=== PATIENT | male | born 1955 | race Caucasian/White ===

== ENCOUNTER 2023-06-21 07:53 | Emergency (ER) | payer MEDICARE, BC, SELFPAY ==
[2023-06-21 08:20] LABS: Glucose - Point of Care 146 mg/dl (70-99)
--- NOTE | 2023-06-21 08:38 | ED.GENMED ---
History of Present Illness
General
Chief Complaint: Weakness
Source: patient
Exam Limitations: none
Time Seen by Provider: 06/21/23 08:12
Travel History
Have you had any contact with someone who has COVID-19?: No
Do you have any symptoms of coronavirus? Fever > 100 degrees, chills, cough, shortness of breath, sore throat, loss of taste or smell, muscle aches, or headache?: No
History of Present Illness
History of Present Illness:
See MDM
Past History
Past History
ED Past Medical History: HTN, Hypercholesterolemia and NIDDM
ED Past Surgical History: Urological
Social History
Tobacco: Non-smoker
Alcohol: Occasional
Drug: None
Personal:
Living: with family
Phy Exam
Physical Exam
Physical Exam:
See MDM
Course
Orders/Labs/Results
Orders:
Orders
06/21/23 08:25
CT Head W/o Iv Contrast Urgent
Comment:
Reason For Exam: Fall, R forehead injury
06/21/23 08:57
Electrocardiogram (*1) Urgent
Reason for Study: Fatigue / Weakness
EKG- Treatment ONCE
06/21/23 09:20
CMP [Comprehensive Metabolic Panel] Urgent
Complete Blood Count/With Diff Urgent
Abnormal Lab Results
06/21/23 06/21/23
08:19 09:20
RBC 3.70 L 10^6/uL
(4.70-6.10)
Hgb 10.2 L g/dL
(13.0-18.0)
Hct 30.8 L %
(39.0-52.0)
Abs Immat Gran (auto) 0.1 H 10^3/uL
(0-0.05)
Absolute Neuts (auto) 7.7 H 10^3/uL
(1.4-6.5)
Absolute Lymphs (auto) 0.4 L 10^3/uL
(1.2-3.4)
Immature Gran % 0.9 H %
(0-0.5)
Neutrophils % 86.4 H %
(42.2-75.2)
Lymphocytes % 4.0 L %
(20.5-51.1)
Creatinine 0.6 L mg/dL
(0.7-1.3)
Glucose 143 H mg/dl
(70-99)
POC Glucose 146 H mg/dl
(70-99)
06/21/23 09:20
06/21/23 09:20
Vital Signs
Initial and Last Documented VS:
Initial Vital Signs
Temp Pulse Resp Pulse Ox
97.7 F 63 16 99
06/21/23 07:55 06/21/23 07:55 06/21/23 07:55 06/21/23 07:55
Last Documented Vital Signs
Temp Pulse Resp Pulse Ox
97.7 F 63 16 99
06/21/23 07:55 06/21/23 07:55 06/21/23 07:55 06/21/23 07:55
Procedures
Laceration Closure
Right Anterior Lateral Eye brow:
Status of Wound: clean
Size of Wound in cm: 5
Description of Wound Edges: ragged
Preparation: cleaned with Betadine
Anesthesia: 1% Lidocaine with epi
Revision/Debridement: routine- no revision
Wound exploration: explored to base- no FB
Type of Closure: single layer closure
Skin Closure Material: 5-0 nylon
Number of sutures: 6
MDM/Problems Addressed
Differential Diagnosis Includes:
HPI and MDM Narrative:
67-year-old male presenting for evaluation of a fall. Patient was holding his cup of coffee while trying to use his walker. Patient states this was a mistake and he fell. He is unsure what he hit but he did hit the right side of his head. He
believes his tetanus is up-to-date.
Patient and indicating that he is currently doing much better since his surgery a few months back. Patient had a prostatectomy which was complicated requiring a wound VAC on his abdomen. Patient states the wound is healing well and he has
visiting nurses. He states his strength is coming back but he made a mistake trying to carry the coffee with a walker.
Patient is sitting in bed comfortably. I will obtain CT head. The laceration was repaired at bedside.
Physical exam
General: Well appearing and non-toxic
HEENT: protecting airway. 5 cm stellate laceration to right eyebrow
Neck: supple
CV: No evidence of cyanosis
Resp: No accessory muscle use
Abd: Non-distended. Mid abdominal wound VAC in place. No surrounding cellulitis
Extremities: Small abrasion to right wrist without bony tenderness.
Neuro: alert
Psych: Normal affect
Skin: Minor skin abrasions to left palm without bony tenderness
Problems Addressed including Acute and Chronic Conditions affecting care:
1. Head injury
Acuity: acute
Prognosis: stable
Details: Given age and fall, will obtain CT head
2. Eyebrow laceration
Acuity: acute
Prognosis: stable
Details: 6 Stitches placed
Updates
Blood work without significant abnormalities. We discussed mild anemia but this is expected given recent procedures. Patient feels comfortable going home. CT head negative
Differential Diagnosis (but not limited to): Intracranial hemorrhage, fracture, dehydration
Testing considered: CT cervical spine but no bony tenderness noted
Drug therapy (if applicable): OTC meds, please see d/c instruction regarding Rx drugs
Amount and/or Complexity of Data Reviewed
Clinical info obtained from: Patient
External data reviewed: N/A
Labs I independently reviewed (but not limited to): Mild anemia
Radiology: The CT scan was personally and independently reviewed. In addition, official CT report reviewed.
Pulse Ox: not hypoxic
EKG independently reviewed: sinus rhythm, left axis, no STEMI
Retail Aide: N/A
Critical Care: N/A
Risk of Complication:
Social Determinants of health: Good social support
Discussed with other providers: N/A
Escalation of Care includes Admit/Obs: After being observed in the Emergency Department, pt stable for discharge.
Occasional wrong word or 'sound a like' substitutions may have occurred due to the inherent limitations of voice recognition software. Read the chart carefully and recognize, using context, where substitutions have occurred.
*Critical Care Note
Total Time (30-74mins, 75-104mins- exclusive of procedures): Not Applicable
ED Attending Note
-
Portions of this chart may have been created with voice recognition software.� Occasional wrong word or��sound alike� substitutions may have occurred due to the inherent limitations of voice recognition software.
Discharge Plan
Departure
Patient Disposition: Home (Routine Discharge)
Date of Disposition: 06/21/23
Time of Disposition: 10:04
Patient with high blood pressure during this ER visit?: No
Discharge Problem:
Head injury, Facial laceration
Instructions: Laceration Repair With Stitches (DC)
Prescriptions:
No Action
cholecalciferol (vitamin D3) 1,000 UNITS tablet
2,000 units PO DAILY Qty: 28 0RF
Rx Instructions:
Take 2,000 units daily for 14 days
lisinopril 20 MG tablet
20 mg PO DAILY
rosuvastatin 20 MG tablet
20 mg PO QPM
fenofibrate nanocrystallized 145 MG tablet
145 mg PO DAILY
nebivolol 2.5 MG tablet
5 mg PO QPM
omeprazole 20 MG capsule,delayed release(DR/EC)
20 mg PO DAILYPRN PRN (Reason: gerd)
empagliflozin-linagliptin [Glyxambi] 1 EACH tablet
1 tab PO DAILY
famotidine 20 MG tablet
20 mg PO BID 0RF
guaifenesin [Mucus Relief ER] 600 MG tablet extended release 12hr
600 mg PO Q12 0RF
Referrals:
Killian Powell DO [Family Provider] -
Activity Restrictions/Additional Instructions:
Keep wound clean and dry, change dressing if it becomes soiled or wet. Watch for signs of infection: fever over 100.5�, increasing pain, red streaks around wound, swelling, drainage of pus, or bad smell. If any of these happen, return to ED
promptly. Return to ED or make an appointment with your doctor to have the 6 sutures removed in 7 days. All wounds may scar, however you may reduce the appearance of scarring by avoiding sun exposure to the scar and applying skin moisturizer with
spf protection to the scar once the wound is healed.
Interventions
Interventions:
*Risk Screen - Suicide Last Done: 06/21/23 07:55
*General Assessment Last Done: 06/21/23 07:55
*Neglect/Abuse Screening Last Done: 06/21/23 07:55
ED- Fall Risk Assessment Last Done: 06/21/23 08:59
*ED COVID-19 Vaccine History Last Done: 06/21/23 08:37
ED- Cardiac Assessment Last Done: 06/21/23 08:59
ED-Musculoskeletal Assessment Last Done: 06/21/23 08:59
ED- Neurological Assessment Last Done: 06/21/23 08:59
ED- Pulmonary Assessment Last Done: 06/21/23 08:59
ED-Skin Assessment Last Done: 06/21/23 08:59
[2023-06-21 09:41] LABS: % Basophils 0.8 % (0-2); % Eosinophils 2.5 % (0-6); % Immature Granulocytes 0.9 % (0-0.5); % Monocytes 5.4 % (1.7-9.3); % Neutrophils 86.4 % (42.2-75.2); Absolute Basophils 0.1 10^3/uL (0-0.2); Absolute Eosinophils 0.2 10^3/uL (0-0.7); Absolute Immature Granulocytes 0.1 10^3/uL (0-0.05); Absolute Lymphocytes 0.4 10^3/uL (1.2-3.4); Absolute Monocytes 0.5 10^3/uL (0.1-0.6); Absolute Neutrophils 7.7 10^3/uL (1.4-6.5); Hematocrit 30.8 % (39.0-52.0); Hemoglobin 10.2 g/dL (13.0-18.0); Mean Corp Hgb Conc. 33.1 g/dL (33.0-37.0); Mean Corpuscular Hgb 27.6 pg (27.0-31.0); Mean Corpuscular Volume 83.2 fL (80.0-94.0); Nucleated Red Blood Cells % 0 % (-); Red Cell Dist. Width 14.5 % (11.5-14.5); White Blood Cell Count 8.9 10^3/uL (4.8-10.8)
[2023-06-21 09:49] LABS: ALT (SGPT) 11 U/L (0-50); AST (SGOT) 23 U/L (17-59); Albumin 3.9 g/dl (3.5-5.0); Alkaline Phosphatase 83 U/L (38-126); Blood Urea Nitrogen 15 mg/dl (9-20); Calcium 9.6 mg/dl (8.4-10.2); Carbon Dioxide 26 mmol/L (22-30); Chloride 106 mmol/L (98-107); Glucose 143 mg/dl (70-99); Potassium 3.6 mmol/L (3.5-5.1); Sodium 136 mmol/L (135-145); Total Bilirubin 0.6 mg/dl (0.2-1.3); Total Protein 6.9 g/dl (6.3-8.2); eGFR > 60.00
[2023-06-21 10:28] VITALS: BP 147/84
== END 2023-06-21 11:01 | disposition home or self-care (01) ==
LOC: EMR 07:53
PROVIDERS: EMERGENCY PHYSICIAN Student in an Organized Health Care Education/Training Program; FAMILY PHYSICIAN Internal Medicine
DX: S09.90XA Unspecified injury of head, initial encounter (principal); S01.111A Laceration without foreign body of right eyelid and periocular area, initial encounter; W19.XXXA Unspecified fall, initial encounter
CPT/HCPCS: 99285; 12013; 70450; 80053; 82962; 85025; 93005

== ENCOUNTER 2023-08-18 04:25 | Inpatient (IN) | payer MEDICARE, BC, SELFPAY ==
[2023-08-17] VITALS (7 sets, daily range): BP systolic 104–132; BP diastolic 62–76; BMI 25.4
--- NOTE | 2023-08-17 21:49 | ED.GENMED ---
History of Present Illness
General
Chief Complaint: Fever
Source: patient and spouse
Exam Limitations: altered mental status
Time Seen by Provider: 08/17/23 21:45
Nursing documentation reviewed up to this point in time: agreed with
History of Present Illness
History of Present Illness:
67-year-old male diabetes hypertension past 6 months ago underwent prostate surgery at [facility] apparently had an iatrogenic small bowel injury identified about 6 days later was under the care of Dr. James Villavicencio GI surgeon, numerous
washouts IR drains has what sounds like a wound VAC now scheduled to see Dr. Villavicencio next week with plan to go to see plastic surgery for wound closure in [place], tonight had vomiting chills, noted signs of sepsis which patient has had
previously
Patient has had weight loss over the past few months
tells me she was told by his urologist that if you were needing to be transferred to the [facility] to go to the hospital [facility] as opposed to [facility]
Patient's wound VAC was changed today
Patient saw dentist had a procedure done recently had 1 dose of an antibiotic
Patient had a UTI diagnosed at [facility] a month or so ago
Past History
Past History
ED Past Medical History: HTN, Hypercholesterolemia and NIDDM
ED Past Surgical History: Bowel resection and Urological
Social History
Tobacco: Non-smoker
Alcohol: Occasional
Drug: None
Personal:
Living: with family
Employment: Retired
Review of Systems
Review of Systems
All Other Systems: Not applicable
Constitutional: Reports fever, fatigue and chills
Respiratory: Reports cough and trouble breathing
ABD/GI: Reports nausea and vomiting
: Reports no symptoms
Musculoskeletal: Reports no symptoms
Neurological: Reports dizzy and weakness
Phy Exam
Physical Exam
Physical Exam:
Physical Exam
General: Chronically ill male warm to touch tachycardic
Neck: Lips are dry
Heart: Tachycardic
Lungs: Crackles left greater than right
Abdomen: Soft wound VAC in
Neuro: alert and oriented globally weak
Skin: no rash
Psychiatric: Cooperative
Extremities: no edema.
Course
Orders/Labs/Results
Orders:
Orders
08/17/23 21:53
IV Insert/Care/Rem.- Treatment PRN
0.9% Sodium Chloride 1000 ml [Nss] 2,000 ml IV BOLUS
08/17/23 21:54
CR Chest Portable - 1 View Urgent
Comment:
Reason For Exam: fever
Reason Study Needs to be Portable: Unable to Transport
08/17/23 22:11
Basic Metabolic Panel Urgent
Complete Blood Count/With Diff Urgent
Lactic Acid Q4H
Comment: CANCEL 2nd LACTIC ACID IF 1st LACTIC ACID IS LESS THAN 2
Blood Culture Q30M
WEI Source: Blood/Venous
Specimen Description:
08/17/23 22:25
Rectal Temp- Treatment ONCE
08/17/23 22:26
CT Abd/pelvis W Iv Cont Urgent
Comment:
Reason For Exam: fever wound vac, bowel perf
08/17/23 22:45
Piperacillin/Tazo 3.375 Gram [Zosyn] 3.375 gram in 50 ml IV NOW
08/17/23 22:46
Acetaminophen 1000MG/100Ml [Ofirmev] 1,000 mg in 100 ml IV ONCE
Acetaminophen IV Indication:: ED Narcotic Naive Pt-ONCE
08/17/23 23:21
COVID-19 Antigen Urgent
Source: Nasal Swab
Blood Culture Q30M
WEI Source: Blood/Venous
Specimen Description:
Influenza A+B Rapid Molecular Urgent
WEI Source: Nasal Swab
Specimen Description:
08/17/23 23:23
CMP [Comprehensive Metabolic Panel] Urgent
08/18/23 02:00
Lactic Acid Q4H
Comment: CANCEL 2nd LACTIC ACID IF 1st LACTIC ACID IS LESS THAN 2
Abnormal Lab Results
08/17/23 08/17/23
22:11 23:23
RBC 3.84 L 10^6/uL
(4.70-6.10)
Hgb 10.9 L g/dL
(13.0-18.0)
Hct 31.7 L %
(39.0-52.0)
Absolute Neuts (auto) 8.2 H 10^3/uL
(1.4-6.5)
Absolute Lymphs (auto) 0.3 L 10^3/uL
(1.2-3.4)
Neutrophils % 92.6 H %
(42.2-75.2)
Lymphocytes % 2.8 L %
(20.5-51.1)
BUN 30 H mg/dl 29 H mg/dl
(9-20) (9-20)
Glucose 166 H mg/dl 157 H mg/dl
(70-99) (70-99)
Lactic Acid 2.8 H mmol/L
(0.7-2.0)
08/17/23 22:11
08/17/23 23:23
Vital Signs
Initial and Last Documented VS:
Initial Vital Signs
BP
132/62
08/17/23 21:44
Last Documented Vital Signs
Temp Pulse Resp BP Pulse Ox
99.0 F 101 25 124/69 94
08/17/23 22:25 08/18/23 00:00 08/18/23 00:00 08/18/23 00:00 08/18/23 00:00
MDM/Problems Addressed
Differential Diagnosis Includes:
Sepsis pneumonia UTI influenza COVID intra-abdominal process
MDM/Problems Addressed:
Fever
Chronic conditions affecting care:
Bowel perforation diabetes hypertension
*Critical Care Note
Total Time (30-74mins, 75-104mins- exclusive of procedures): 30
Update Note
Update Note:
1045 labs noted looks dry white count noted urine pending chest x-ray noted report noted will start on antibiotics volume resuscitation
12:30 AM chest x-ray report noted, CT noted CT report noted urine is pending
ED Attending Note
-
Portions of this chart may have been created with voice recognition software.� Occasional wrong word or��sound alike� substitutions may have occurred due to the inherent limitations of voice recognition software.
Discharge Plan
Departure
Patient Disposition: Admit
Date of Disposition: 08/18/23
Time of Disposition: 00:37
Admit to: Med/Surg
Presentation/result/management discussed w/ accepting MD/DO: Hospitalist
Patient with high blood pressure during this ER visit?: No
Condition: Fair
Covid-19: Negative COVID-19
Discharge Problem:
Pneumonia
Prescriptions:
No Action
lisinopril 20 MG tablet
20 mg PO DAILY
fenofibrate nanocrystallized 145 MG tablet
145 mg PO HS
metformin 500 mg tablet extended release 24 hr
500 mg PO DAILY
escitalopram oxalate 10 mg tablet
10 mg PO HS
oxycodone 10 mg tablet
5 mg PO Q8H PRN (Reason: moderate pain/wound vac changes)
Patient Comments:
08/17/2023: last filled , 90 tabs for 30 days from [facility]
cholecalciferol (vitamin D3) [Vitamin D3] 50 mcg (2,000 unit) Tablet
50 mcg PO DAILY
ibuprofen 200 mg Capsule
400 - 600 mg PO Q6H PRN (Reason: mild pain)
acetaminophen 500 mg Tablet
1,000 mg PO Q6H PRN (Reason: mild pain)
omeprazole magnesium [Prilosec OTC] 20 mg Tablet,Delayed Release (Dr/Ec)
20 mg PO DAILY PRN (Reason: acid reflux/heartburn)
Referrals:
Killian Powell DO [Family Provider] -
Interventions
Interventions:
*Risk Screen - Suicide Last Done: 08/17/23 22:20
*General Assessment Last Done: 08/17/23 22:20
*Neglect/Abuse Screening Last Done: 08/17/23 22:20
ED- Fall Risk Assessment Last Done: 08/17/23 22:20
*ED COVID-19 Vaccine History Last Done: 08/17/23 22:20
ED- Neurological Assessment Last Done: 08/17/23 22:20
ED-Skin Assessment Last Done: 08/17/23 22:20
Discharge Date and Time
Print Language: AZERI
[2023-08-17 22:17] LABS: % Basophils 0.3 % (0-2); % Immature Granulocytes 0.5 % (0-0.5); % Lymphocytes 2.8 % (20.5-51.1); % Monocytes 1.8 % (1.7-9.3); % Neutrophils 92.6 % (42.2-75.2); Absolute Eosinophils 0.2 10^3/uL (0-0.7); Absolute Lymphocytes 0.3 10^3/uL (1.2-3.4); Absolute Monocytes 0.2 10^3/uL (0.1-0.6); Absolute Neutrophils 8.2 10^3/uL (1.4-6.5); Hematocrit 31.7 % (39.0-52.0); Hemoglobin 10.9 g/dL (13.0-18.0); Mean Corp Hgb Conc. 34.4 g/dL (33.0-37.0); Mean Corpuscular Hgb 28.4 pg (27.0-31.0); Mean Corpuscular Volume 82.6 fL (80.0-94.0); Mean Platelet Volume 8.9 fL (7.4-10.4); Nucleated Red Blood Cells % 0 % (-); Platelet Count 311 10^3/uL (130-400); Red Blood Cell Count 3.84 10^6/uL (4.70-6.10); White Blood Cell Count 8.9 10^3/uL (4.8-10.8)
[2023-08-17] MEDS: NSS 2000 IV (22:19)
[2023-08-17 22:30] LABS: Lactic Acid 2.8 mmol/L (0.7-2.0)
[2023-08-17 22:35] LABS: Blood Urea Nitrogen 30 mg/dl (9-20); Calcium 9.9 mg/dl (8.4-10.2); Carbon Dioxide 23 mmol/L (22-30); Chloride 104 mmol/L (98-107); Glucose 166 mg/dl (70-99); Sodium 137 mmol/L (135-145); eGFR > 60.00
[2023-08-17] MEDS: OFIRMEV 100 IV (23:29)
[2023-08-17] MEDS: ZOSYN 50 IV (23:30)
[2023-08-17 23:44] LABS: ALT (SGPT) 11 U/L (0-50); AST (SGOT) 19 U/L (17-59); Albumin 3.5 g/dl (3.5-5.0); Alkaline Phosphatase 80 U/L (38-126); Blood Urea Nitrogen 29 mg/dl (9-20); Calcium 9.7 mg/dl (8.4-10.2); Carbon Dioxide 22 mmol/L (22-30); Chloride 107 mmol/L (98-107); Estimated Creatinine Clearance 87 ml/min; Glucose 157 mg/dl (70-99); Potassium 3.7 mmol/L (3.5-5.1); Sodium 140 mmol/L (135-145); Total Bilirubin 0.5 mg/dl (0.2-1.3); Total Protein 6.3 g/dl (6.3-8.2); eGFR > 60.00
[2023-08-17 23:47] LABS: COVID-19 Antigen Negative (Negative)
[2023-08-18] VITALS (30 sets, daily range): BP systolic 78–137; BP diastolic 54–79; PULSE 91–94; O2SAT 97; BMI 25.1
[2023-08-18] MEDS: FLUSH (NSS) 1 FLUSH IV (03:04)
--- NOTE | 2023-08-18 03:04 | DOWNTIME ---
There was a [employer] Client Copywriter Downtime on 08/17/2023 from 0100 to 08/18/2023 at 0300. Downtime documentation of patient's care, including medication administrations, has been reconciled in the electronic record per guidelines. Refer to the
patient's paper chart under the miscellaneous tab to see printed paper medication records and downtime forms.
--- NOTE | 2023-08-18 03:55 | HPS.HSE ---
Family Physician
-
Family Physician: Killian Powell
Chief Complaint
-
rigors
History of Present Illness
67 y/o M hx of DM, HTN, HLD, hx of prostate surgery c/b bowel injury, drains and now wound VAC presents to ER with rigors and chills. Also with vomiting. at bedside assists in history and reports this is very similar to prior sepsis episodes.
No other complaints prior to hospitalization. Upon arrival to Er, patient was SOB And placed on 2L NC. He was found to have small pleural effusion and pneumonia. He was given Zosyn and admitted.
Medical History
Past Medical History
Past Medical History: Reports Other (DM, HTN, HLD, hx of prostate surgery c/b bowel injury, drains and now wound VAC )
Past Surgical History: Reports Other (prostate surgery c/b bowel injury, drains and now wound VAC )
Social History
Tobacco: Non-smoker
Alcohol: Occasional
Drug: None
Personal:
Living: With Family
Employment: Retired
Family History
Family History: Not pertinent
Allergies / Home Medications
Allergies reflects when Allergies were last updated in [employer].
Home Medications with original date entered in [employer]
Allergy/Medication List:
Allergies
Allergy/AdvReac Type Severity Reaction Status Date / Time
No Known Allergies Allergy Verified 08/17/23 21:50
Home Medications
fenofibrate nanocrystallized 145 mg tablet 145 mg PO HS 12/06/20
lisinopril 20 mg tablet 20 mg PO DAILY 12/06/20
acetaminophen 500 mg tablet 1,000 mg PO Q6H PRN mild pain 08/17/23
cholecalciferol (vitamin D3) 50 mcg (2,000 unit) tablet (Vitamin D3) 50 mcg PO DAILY 08/17/23
escitalopram oxalate 10 mg tablet 10 mg PO HS 08/17/23
ibuprofen 200 mg capsule 400 - 600 mg PO Q6H PRN mild pain 08/17/23
metformin 500 mg tablet,extended release 24 hr 500 mg PO DAILY 08/17/23
omeprazole magnesium 20 mg tablet,delayed release (Prilosec OTC) 20 mg PO DAILY PRN acid reflux/heartburn 08/17/23
oxycodone 10 mg tablet 5 mg PO Q8H PRN moderate pain/wound vac changes 08/17/23
Review of Systems
-
A 12 point ROS was completed and negative except as noted: Yes
Physical Exam
Vital Signs
Vital Signs
Temp Pulse Resp BP Pulse Ox
99.0 F 94 16 79/55 100
08/17/23 22:25 08/18/23 03:00 08/18/23 03:00 08/18/23 03:00 08/18/23 02:30
Physical Exam
General: No Apparent Distress and Appears Chronically Ill
HEENT: NormoCephalic and Anicteric
Respiratory: Rhonchi (mild L base rhonchi); No Wheezes or Rales
Cardiac: S1/S2 and Regular Rhythm
Neuro: AO x 3
Hematologic/Lymphatic: No Lymphadenopathy
Psych: Calm
Laboratory Results
-
08/17/23 22:11
08/17/23 23:23
Laboratory Results
Lactic Acid 2.8 mmol/L (0.7-2.0) H 08/17/23 22:11
Total Bilirubin 0.5 mg/dl (0.2-1.3) 08/17/23 23:23
AST 19 U/L (17-59) 08/17/23 23:23
ALT 11 U/L (0-50) 08/17/23 23:23
Alkaline Phosphatase 80 U/L (38-126) 08/17/23 23:23
Data Reviewed
-
Lab Data: Labs Reviewed by me
Impression/Plan
-
Assessment:
Early severe sepsis (tachypnea, tachycardia, pneumonia, lactic acidosis)
Acute hypoxic respiratory insufficiency on 2L
L basilar airspace PNA
- IV Zosyn
- IV Vanco pending MRSA swab
- follow cultures
- wean O2 as able
type 2 DM
- continue Metformin
- SSI
- check A1c
Essential HTN
- continue GUILHERME
HLD - fibrates
hx of prostate surgery c/b bowel injury, drains and now wound VAC
- wound care evaluation
- CT negative
DVT ppx: Lovenox
Code: Full
[2023-08-18] MEDS: NSS 1000 IV ×3 (04:28→21:08)
[2023-08-18 05:25] LABS: Lactic Acid 2.3 mmol/L (0.7-2.0)
--- NOTE | 2023-08-18 06:27 | PTCARENOTE ---
Held pt's metformin due to receiving IV contrast for CT scan. DOOR PERSON aware. Pt on SS novalog.
[2023-08-18 06:39] LABS: Hematocrit 27.6 % (39.0-52.0); Hemoglobin 9.2 g/dL (13.0-18.0); Mean Corp Hgb Conc. 33.3 g/dL (33.0-37.0); Mean Corpuscular Hgb 28.7 pg (27.0-31.0); Mean Platelet Volume 9.3 fL (7.4-10.4); Platelet Count 261 10^3/uL (130-400); Red Blood Cell Count 3.21 10^6/uL (4.70-6.10); Red Cell Dist. Width 13.2 % (11.5-14.5); White Blood Cell Count 17.7 10^3/uL (4.8-10.8)
[2023-08-18] MEDS: ZOSYN 50 IV ×2 (06:44→11:25)
[2023-08-18 06:54] LABS: ALT (SGPT) < 10 U/L (0-50); AST (SGOT) 17 U/L (17-59); Albumin 2.9 g/dl (3.5-5.0); Alkaline Phosphatase 71 U/L (38-126); Blood Urea Nitrogen 29 mg/dl (9-20); Calcium 9.1 mg/dl (8.4-10.2); Carbon Dioxide 21 mmol/L (22-30); Chloride 109 mmol/L (98-107); Estimated Creatinine Clearance 77 ml/min; Glucose 140 mg/dl (70-99); Potassium 3.6 mmol/L (3.5-5.1); Sodium 139 mmol/L (135-145); Total Bilirubin 0.4 mg/dl (0.2-1.3); Total Protein 5.5 g/dl (6.3-8.2); eGFR > 60.00
[2023-08-18] MEDS: VANCOCIN 540 MG IV (07:36)
[2023-08-18 07:46] LABS: Glucose - Point of Care 138 mg/dl (70-99)
--- NOTE | 2023-08-18 08:07 | PHA.VAN.IN ---
Assessment
- Assessment
Renal Function: Appears elevated from baseline (SCR slightly elevated at 0.9 vs 0.6 and BUN 29 vs ~15)
Concomitant Antimicrobials: piperacillin/tazobactam
Plan
- Plan
Initial / Loading Dose: 2000mg - 08/17 07:36
Maintenance Regimen: dosing by level due to slight elevations in renal function
Monitoring: random 08/18 0600
Norepinephrine also being initiated
Vanc 750mg Q12H predicts AUC 433, peak 25.5, trough 12 using population PK with current estimated CrCl
Will give 750mg x1 at 1800 and hold off on scheduling given slight elevations in SCR and BUN and possible initiation of pressor support
Pharmacokinetics Vancomycin I
- -
Patient Age: 67
Patient Sex: Male
Vancomycin Day #: 1
Indication: Pulmonary/Respiratory
Requesting Provider: Dr. Orozco
Pertinent Antimicrobial Allergies:
NKDA
Height / Weight:
Height 5 ft 8 in
Actual Weight 74.9 kg
Pertinent Past Medical History: DM
- Vital Signs / Lab Results
Temp Pulse Resp BP Pulse Ox
98.1 F 83 21 85/61 97
08/18/23 07:48 08/18/23 06:00 08/18/23 05:00 08/18/23 06:00 08/18/23 06:00
Lab Results - Hematology
08/17/23 08/18/23
22:11 06:14
WBC 8.9 17.7 H
Lab Results - Chemistry
08/17/23 08/17/23 08/18/23
22:11 23:23 06:14
BUN 30 H 29 H 29 H
Creatinine 0.7 0.8 0.9
Estimated Creat Clear 87 77
Albumin Cancelled 3.5 2.9 L
08/17/23 08/18/23
22:11 04:49
Lactic Acid 2.8 H 2.3 H
Microbiology Results
08/17/23 23:21 Influenza Types A & B (FILIBERTO) - Final
Nasal Swab Negative for Influenza A & B, NAAT
Negative results must be combined with clinical observations
and patient history.
Nucleic Acid Amplification test (NAAT)performed on the
[employer] platform.
--- NOTE | 2023-08-18 08:09 | W.PN.HOSP.TC ---
Today's Communication/Plan
-
IVF
AB
ID Eval
USS chest
Assessment / Plan
Assessment / Plan
67-year-old male presented to the hospital with rigors and chills. Also had some vomiting. He was slightly hypoxic in the ER required 2 L of oxygen.
Patient had robotic prostatectomy at [facility] in February. This was complicated by small bowel injury while withdrawing the robot. Patient underwent surgery and had drains. He has had a chronic wound on the abdominal wall since
February. He has a wound VAC and had seen his urologist Dr. Villavicencio. Plan is to take patient off of wound VAC and to have a plastic surgery appointment on Wednesday.
On examination awake alert oriented
Cardiovascular system S1-S2 appreciated
Decreased breath sounds left base
Abdomen wound VAC noted
Bowel sounds present
Neuroexam is nonfocal
# Sepsis with septic shock
Possible source pneumonia-with pleural effusion
Start pressors-Levophed as needed to keep MAP over 65 mmHg.
IV fluids to be continued
Left basilar pneumonia and possible effusion
Currently on Zosyn and vancomycin
Follow cultures
Ultrasound of the left chest
Infectious disease consultation requested
Continue oxygen supplementation and wean as tolerated
Lactic acidosis-needs to be followed
# History of prostate cancer and prostate surgery at [facility] complicated with bowel injury requiring drains and now has a wound VAC
Wound Evaluation
He has a wound VAC and had seen his urologist Dr. Villavicencio. Plan is to take patient off of wound VAC and to have a plastic surgery appointment on Wednesday.
# Constipation-bowel regimen
# Anemia-check iron studies and B12
# Type 2 diabetes-hold metformin because of IV dye
Hemoglobin A1c pending
Accu-Cheks and sliding scale coverage
# Hypertension-hold GUILHERME inhibitors given hypotension
# Hyperlipidemia-continue fenofibrate
# Depression-continue Lexapro
# GERD-continue PPI
# Hyperlipidemia
# Ex-smoker
D/W RN at bed side
time spent 52 min
Anticipated Discharge: 24 - 48 hours
Subjective/Interval History
-
Date of Service: August 18, 2023
Objective Data
-
Labs:
Laboratory Results
08/17/23 08/17/23 08/18/23
22:11 23:23 06:14
WBC 8.9 17.7 H
Hgb 10.9 L 9.2 L
Hct 31.7 L 27.6 L
Plt Count 311 261
Sodium 137 140 139
Potassium 3.7 3.6
Chloride 104 107 109 H
Carbon Dioxide 23 22 21 L
BUN 30 H 29 H 29 H
Creatinine 0.7 0.8 0.9
Glucose 166 H 157 H 140 H
Calcium 9.9 9.7 9.1
Total Bilirubin Cancelled 0.5 0.4
AST Cancelled 19 17
ALT Cancelled 11 < 10
Alkaline Phosphatase Cancelled 80 71
Vital Signs:
Vital Signs
Temp Pulse Resp BP Pulse Ox
98.1 F 83 21 85/61 97
08/18/23 07:48 08/18/23 06:00 08/18/23 05:00 08/18/23 06:00 08/18/23 06:00
--- NOTE | 2023-08-18 08:56 | PTCARENOTE ---
Rec'd pt this AM, hypotension persists, Dr. Montano notified and arrived at bedside to assess. BP slightly improved. Levo ordered but not yet started due to improved MAP. IVF and ABX infusing
[2023-08-18 09:37] LABS: Lactic Acid 2.1 mmol/L (0.7-2.0)
--- NOTE | 2023-08-18 10:03 | WOUNDNOTE ---
WON RN note: Patient admitted with pneumonia.
See H&P for complete history.
PMH: NIDDM,HTN, prostatectomy, bowel resection with complications at [facility]- wound vac on abdominal wound.
Wound Location and type/assessment: Patient admitted with: Wound vac in use on abdominal surgical wound, black foam to 125mmhg continuous. Patient reports Dr. Fernandez from [facility] applied wound vac back in February, VN has been changing it 2x per week,
last changed yesterday. Plan was for him to see a plastic surgeon for closure, has an apt August 22. Patient using own [employer] home vac unit, called [facility] for hospital wound vac and supplies. Patient requested that dressing not be changed till Wednesday
when next change due. Patient aware may have to see wound today but will ask hospitalist and I&D. Patient able to turn to sides, sacrum and heels intact.
Appetite: Good.
Pressure redistribution devices in place: On Air mattress.
Plan: Confirmed with both Dr. Montano and Dr. Fulton that wound needs to be seen today to rule out source of infection and that dressing to be changed today. Nurse Monica made aware of the above and asked to premedicate for pain if needed. PT
working with patient at moment, but will change dressing within the half hour.
Will confirm orders with hospitalist and updated nurse. Updated care plan and will follow as needed.
Note to case management of equipment requested for discharge: Continue VN
Recommend follow up with Plastic surgeon as scheduled.
--- NOTE | 2023-08-18 10:30 | WOUNDNOTE ---
ABDOMEN 2ND VIEW
--- NOTE | 2023-08-18 10:35 | WOUNDNOTE ---
WON RN NOTE: Wound vac applied adaptic then black foam to 125mmhg. Wound bed clean and granular, wound culture done per Dr. Fulton. Nurse Monica will send to lab. Abdomen shaved prior to application with electric razor. Patient tolerated procedure,
home vac charging at bedside, supplies in rm. Will place back on home vac unit when discharged. Enrolled on [employer] Web site hospital vac by JD Allen. Will follow for next vac change.
[2023-08-18 10:41] LABS: Glycohemoglobin (HgbA1c) 6.2 % (4.0-5.6)
[2023-08-18 10:44] LABS: Iron < 20 ug/dl (49-181)
[2023-08-18 10:50] LABS: Total Iron Binding Capacity 266 ug/dl (261-462)
--- NOTE | 2023-08-18 11:23 | CON.ID ---
Consultation
-
Date/Time Consultation Requested: August 18, 2023 0803
Date/Time Consultation Performed: August 18, 2023 1125
Requesting Provider: Dr. Piero Montano
Performing Provider: Dr. Michela Fulton
Reason for Consultation: Sepsis
Chief Complaint / Past History
Chief Complaint
Shaking chills
History of Present Illness
67-year-old male with history of diabetes mellitus, prostate cancer status post radical prostatectomy at [facility]-February 2023 complicated by small bowel injury/intra-abdominal abscess status post repair with large abdominal wound with wound VAC
since February 2023. He presented to the ER yesterday with acute onset of rigors. No fever. Positive weakness. No cough or shortness of breath. Positive emesis x 1. No diarrhea. In the ER, patient was hypoxic, chest x-ray showed small left
pleural effusion with adjacent consolidation, lactic acid 2.8. Today's blood pressure has been low and started on pressor. Admission blood cultures are positive for GPC's in chains and pairs. Patient reports his abdominal wound has been
improving. He denies ill contacts. He did have a tooth pulled last week August 12. Tooth was pulled due to deep cavity.
Past History
Additional Past Medical History:
Diabetes mellitus
Hypertension
HLD
Prostate cancer status post prostatectomy complicated by small bowel injury (02/2023 at [facility]), now with abdominal wound VAC
Allergy History:
No Known Allergies Allergy (Verified 08/17/23 21:50)
Medications Reviewed: Yes
Current Antibiotics:
Vancomycin
Zosyn
Social History
Tobacco: Former Smoker
Alcohol: Occasional
Drug: None
Personal:
Living: With Family
Family History
Family History: Not Pertinent
Review of Systems
Review of Systems
General: Chills and Change in Appetite
HEENT: Negative Stiff Neck, Sinus Problems, Headache or Pharyngitis
Cardiovascular: Negative Chest Pain
Respiratory: Negative Dyspnea, Cough or Sputum Production
Gasteroenterology: Nausea and Vomiting
Genital / Urological: Negative Dysuria or Flank Pain
Endocrine: Weakness
Musculoskeletal: Negative Arthralgias
Skin / Hair / Nails: Negative Rash
Neurological: Negative Headache or Dizziness
All systems: All other systems were reviewed and were negative
Vital Signs
Temp Pulse Resp BP Pulse Ox
98.1 F 100 21 129/79 98
08/18/23 07:48 08/18/23 10:02 08/18/23 10:02 08/18/23 10:02 08/18/23 09:53
Physical Exam
Physical Exam
Constitutional: Comfortable
Eyes: No Conjunctival Hemorrhage and Sclera Anicteric
Oral: No Thrush
Cardiovascular: Regular Rate and S1/S2
Pulmonary: Other (Decreased breath sound left base)
Gastrointestinal: Soft, Non Tender, Non Distended and Normal Bowel Sounds
Genito-Urinary: Negative CVA Tenderness
Extremities: Negative Edema
Wound: Other (Review of wound photo: large abdominal wound with clean granulation tissue)
Neurological: AO x 3
Lab / Diagnostic Study Results
08/18/23 06:14
08/18/23 06:14
Abs Immat Gran (auto) 0.0 10^3/uL (0-0.05) 08/17/23 22:11
Absolute Neuts (auto) 8.2 10^3/uL (1.4-6.5) H 08/17/23 22:11
Absolute Lymphs (auto) 0.3 10^3/uL (1.2-3.4) L 08/17/23 22:11
Absolute Monos (auto) 0.2 10^3/uL (0.1-0.6) 08/17/23 22:11
Absolute Basos (auto) 0.0 10^3/uL (0-0.2) 08/17/23 22:11
Immature Gran % 0.5 % (0-0.5) 08/17/23 22:11
Neutrophils % 92.6 % (42.2-75.2) H 08/17/23 22:11
Lymphocytes % 2.8 % (20.5-51.1) L 08/17/23 22:11
Monocytes % 1.8 % (1.7-9.3) 08/17/23 22:11
Eosinophils % 2.0 % (0-6) 08/17/23 22:11
Basophils % 0.3 % (0-2) 08/17/23 22:11
Lactic Acid 2.1 mmol/L (0.7-2.0) H 08/18/23 09:06
Microbiology Results
Micro:
08/17/23 22:11 Blood Culture - Preliminary
Blood/Venous Positive culture in progress
Gram Stain - Final
08/17/23 23:21 Blood Culture - Preliminary
Blood/Venous Positive culture in progress
Gram Stain - Preliminary
08/18/23 06:14 MRSA Screen - Pending
Nose
08/17/23 23:21 Influenza Types A & B (FILIBERTO) - Final
Nasal Swab Negative for Influenza A & B, NAAT
Negative results must be combined with clinical observations
and patient history.
Nucleic Acid Amplification test (NAAT)performed on the
[employer] platform.
08/17/23 CT a/p: Open wound is seen within the anterior abdominal wall near the midline, with a wound VAC. No abscess is seen adjacent to the open wound. Abdominal wall fascia appears to be intact. Severe fecal retention within the rectum, which
measures 8 cm in diameter. Findings may be related to severe constipation, and/or fecal impaction.
08/17/23 CXR: Small partially loculated left pleural effusion with associated left basilar airspace disease suspicious for pneumonia.
Assessment / Plan
# Bacteremia with GPC chains/pairs
?Strep mitis group - recent tooth extraction 5/10/14
? Strep pneumoniae
-CT a/p unremarkable
- repeat blood cx's
-await identification of organism.
- Narrow Zosyn to ceftriaxone.
- Continue Vancomycin for now pending cx data.
# Possible PNA
- pt wo respiratory symptoms
# Septic shock
- New leukocytosis today
- Trend vitals, wbc
# Chronic abdominal wound - clean
- hx prostate cancer status post prostatectomy complicated by small bowel injury (02/2023 at [facility]), now with abdominal wound VAC
[2023-08-18] MEDS: TYLENOL 1000 MG PO ×2 (11:25→17:28)
[2023-08-18] MEDS: MILK OF MAGNESIA 30 ML PO (11:25)
[2023-08-18 11:38] LABS: Vitamin B12 287 pg/ml (239-931)
[2023-08-18 12:41] LABS: Glucose - Point of Care 117 mg/dl (70-99)
[2023-08-18 12:46] LABS: Lactic Acid 2.3 mmol/L (0.7-2.0)
[2023-08-18] MEDS: MIRALAX PO (13:30)
[2023-08-18] MEDS: SENOKOT PO ×2 (13:30→18:44)
--- NOTE | 2023-08-18 13:32 | PTCARENOTE ---
Pt with very large formed, soft BM today. Pt did take Milk Of Mag earlier this AM but did not want Miralax or Senna.
--- NOTE | 2023-08-18 13:50 | CM ---
Addendum entered by Shanae Arnold 08/18/23 15:20:
PT/OT recommend discharge to SNF, however Hector is not agreeable to this plan. Family is supportive to discharge to home and assist with care as needed.
Addendum entered by Shanae Arnold 08/18/23 14:28:
Initial IMM given to Hector and his son.
Resumption of Care referral sent to [facility] via [facility]. Await response.
Original Note:
I met with Hector and his son at bedside this afternoon to complete CM assessment. Hector advised that he has home care services through [facility] for PT/OT/wound care (vac). He has an appointment with his plastic surgeon on Wednesday with
the hopes they will schedule wound closure.
Plan: Return home with resumption of [facility]
[2023-08-18] MEDS: STERILE WATER FOR INJECTION 20 ML IV (14:11)
[2023-08-18] MEDS: ROCEPHIN 2000 MG IV (14:12)
--- NOTE | 2023-08-18 14:27 | PTCARENOTE ---
Pt with improved BP. lactic remains elevated, will continue to trend. OOB x1 to chair and BSC without difficulty. family at bedside. Pt reports feeling somewhat better. at breakfast and lunch with no N/V
[2023-08-18 16:41] LABS: Glucose - Point of Care 138 mg/dl (70-99)
[2023-08-18 16:56] LABS: Lactic Acid 1.9 mmol/L (0.7-2.0)
[2023-08-18] MEDS: LOVENOX 40 MG SC (17:29)
[2023-08-18] MEDS: VANCOCIN 150 IV (17:31)
[2023-08-18] MEDS: TRICOR 145 MG PO (21:08)
[2023-08-18] MEDS: LEXAPRO 10 MG PO (21:08)
[2023-08-18 21:52] LABS: Glucose - Point of Care 133 mg/dl (70-99)
[2023-08-18 22:35] LABS: Urine Albumin Negative (Neg - Trace); Urine Bilirubin Negative (Negative); Urine Character Clear (Clear); Urine Color Yellow; Urine Glucose Negative (Negative); Urine Ketone Negative (Negative); Urine Leukocyte Negative (Negative); Urine Nitrite Negative (Negative); Urine Occult Blood Negative (Negative); Urine Urobilinogen Negative (Neg - 1+)
[2023-08-19] VITALS (13 sets, daily range): BP systolic 110–164; BP diastolic 55–84; PULSE 73; O2SAT 96
[2023-08-19] MEDS: ROXICODONE 5 MG PO (01:15)
[2023-08-19] MEDS: TYLENOL 1000 MG PO ×3 (04:41→19:27)
[2023-08-19 04:46] LABS: Hematocrit 28.3 % (39.0-52.0); Hemoglobin 9.2 g/dL (13.0-18.0); Mean Corp Hgb Conc. 32.5 g/dL (33.0-37.0); Mean Corpuscular Volume 86.3 fL (80.0-94.0); Mean Platelet Volume 9.9 fL (7.4-10.4); Platelet Count 269 10^3/uL (130-400); Red Blood Cell Count 3.28 10^6/uL (4.70-6.10); Red Cell Dist. Width 13.3 % (11.5-14.5); White Blood Cell Count 9.5 10^3/uL (4.8-10.8)
--- NOTE | 2023-08-19 04:54 | PTCARENOTE ---
T max 102.9- prn tylenol given. No episodes of hypotension overnight
[2023-08-19 05:19] LABS: Vancomycin Random 13.3 ug/ml
[2023-08-19 05:20] LABS: Blood Urea Nitrogen 21 mg/dl (9-20); Calcium 9.5 mg/dl (8.4-10.2); Carbon Dioxide 22 mmol/L (22-30); Chloride 106 mmol/L (98-107); Estimated Creatinine Clearance 69 ml/min; Glucose 97 mg/dl (70-99); Potassium 3.6 mmol/L (3.5-5.1); Sodium 137 mmol/L (135-145); eGFR > 60.00
[2023-08-19 08:02] LABS: Glucose - Point of Care 127 mg/dl (70-99)
[2023-08-19] MEDS: SENOKOT PO (08:20)
[2023-08-19] MEDS: MIRALAX PO (08:20)
--- NOTE | 2023-08-19 09:22 | W.PN.ID1 ---
Date of Service
Date of Service: August 19, 2023
Today's Communication
Add clindamycin to ceftriaxone.
DC Vancomycin.
Assessment / Plan
# Group A Strep bacteremia - unclear source
# Unlikely PNA - pt wo respiratory symptoms
# Septic shock - improving
-CT a/p unremarkable
- Abd wound clean
- follow repeat blood cx's
-TTE
- Continue ceftriaxone (d2)
- Discontinue Vancomycin
- Add short course IV clindamycin.
# Additional Past Medical History:
Diabetes mellitus
Hypertension
HLD
Prostate cancer status post prostatectomy complicated by small bowel injury (02/2023 at [facility]), now with abdominal wound VAC
Chief Complaint
-: Bacteremia
Subjective / Review of Systems
Feeling better today.
Review of Systems: No Pharyngitis, No Cough and No Sputum Production
Vital Signs / Physical Exam
Vital Signs
Vital Signs
Temp Pulse Resp BP Pulse Ox
98.9 F 81 23 121/64 95
08/19/23 07:31 08/19/23 06:00 08/19/23 06:00 08/19/23 06:00 08/19/23 06:00
Physical Exam
Constitutional: Comfortable
Eyes: Sclera Anicteric
Cardiovascular: Regular Rate and S1/S2
Pulmonary: Other (Decreased BS )
Gastrointestinal: Soft, Non Tender, Non Distended and Other (wound vac in place)
Genito-Urinary: Negative CVA Tenderness
Extremities: Negative Edema
Neurological: AO x 3
Objective Data
Lab Data
Lab Results
08/19/23 03:48
08/19/23 03:48
Estimated Creat Clear 69 ml/min 08/19/23 03:48
Lactic Acid 1.9 mmol/L (0.7-2.0) 08/18/23 16:31
Total Bilirubin 0.4 mg/dl (0.2-1.3) 08/18/23 06:14
AST 17 U/L (17-59) 08/18/23 06:14
ALT < 10 U/L (0-50) 08/18/23 06:14
Alkaline Phosphatase 71 U/L (38-126) 08/18/23 06:14
Most recent labs reviewed.
Micro Results:
08/17/23 23:21 Blood Culture - Preliminary
Blood/Venous Streptococcus pyogenes
Gram Stain - Final
08/17/23 22:11 Blood Culture - Preliminary
Blood/Venous Streptococcus pyogenes
Gram Stain - Final
08/18/23 06:14 MRSA Screen - Final
Nose Staph aureus MRSA
08/19/23 03:48 Blood Culture - Pending
Blood/Venous
08/18/23 11:36 Wound Culture - Pending
Abdomen Gram Stain - Preliminary
08/18/23 12:17 Blood Culture - Pending
Blood/Venous
08/17/23 23:21 Influenza Types A & B (FILIBERTO) - Final
Nasal Swab Negative for Influenza A & B, NAAT
Negative results must be combined with clinical observations
and patient history.
Nucleic Acid Amplification test (NAAT)performed on the
[employer] platform.
08/17/23 CT a/p: Open wound is seen within the anterior abdominal wall near the midline, with a wound VAC. No abscess is seen adjacent to the open wound. Abdominal wall fascia appears to be intact. Severe fecal retention within the rectum, which
measures 8 cm in diameter. Findings may be related to severe constipation, and/or fecal impaction.
08/17/23 CXR: Small partially loculated left pleural effusion with associated left basilar airspace disease suspicious for pneumonia.
Care Review
Plan reviewed with: Physician (Dr. Montano)
--- NOTE | 2023-08-19 09:25 | W.PN.HOSP.TC ---
Today's Communication/Plan
-
IV AB
ECHO
PT EVAL
Assessment / Plan
Assessment / Plan
67-year-old male presented to the hospital with rigors and chills. Also had some vomiting. He was slightly hypoxic in the ER required 2 L of oxygen.
Patient had robotic prostatectomy at [facility] in February. This was complicated by small bowel injury while withdrawing the robot. Patient underwent surgery and had drains. He has had a chronic wound on the abdominal wall since
February. He has a wound VAC and had seen his urologist Dr. Villavicencio. Plan is to take patient off of wound VAC and to have a plastic surgery appointment on Wednesday.
On examination awake alert oriented
Cardiovascular system S1-S2 appreciated
Decreased breath sounds left base
Abdomen wound VAC noted
Bowel sounds present
Neuro Exam is nonfocal
# Sepsis with septic shock
Possible source pneumonia-with pleural effusion
Blood CX with Strep Pyogens
BP stable
Left basilar pneumonia and possible effusion
Currently Zosyn and vancomycin changed to Rocephin and Clinda
Check ECHO
Follow repeat cultures
Ultrasound of the left chest with small fluid only
Infectious disease following
Continue oxygen supplementation and wean as tolerated
Lactic acidosis-resolved.
Abd wound looks stable with granulation.
# History of prostate cancer and prostate surgery at [facility] complicated with bowel injury requiring drains and now has a wound VAC
Wound Evaluation
He has a wound VAC and had seen his urologist Dr. Villavicencio. Plan is to take patient off of wound VAC and to have a plastic surgery appointment on Wednesday.
# Constipation-Resolved
# Anemia-THALIA and low B12 replace both
# Type 2 diabetes-hold metformin till tomorrow - IV dye
Hemoglobin A1c
Accu-Cheks and sliding scale coverage
# Hypertension-Hold GUILHERME inhibitors
# Hyperlipidemia-continue fenofibrate
# Depression-continue Lexapro
# GERD-continue PPI
# Hyperlipidemia
# Ex-smoker
D/W RN
D/W ID
Spoke to and updated.
Time spent 51 min
Anticipated Discharge: > 48 hours
Subjective/Interval History
-
Date of Service: August 19, 2023
Objective Data
-
Labs:
Laboratory Results
08/19/23
03:48
WBC 9.5
Hgb 9.2 L
Hct 28.3 L
Plt Count 269
Sodium 137
Potassium 3.6
Chloride 106
Carbon Dioxide 22
BUN 21 H
Creatinine 1.0
Glucose 97
Calcium 9.5
Vital Signs:
Vital Signs
Temp Pulse Resp BP Pulse Ox
98.9 F 81 23 121/64 95
08/19/23 07:31 08/19/23 06:00 08/19/23 06:00 08/19/23 06:00 08/19/23 06:00
I&O
08/18/23 08/19/23 08/20/23
06:59 06:59 06:59
Intake Total 3250 / 3250
Output Total 400 / 400
Balance 2850 / 2850
[2023-08-19] MEDS: NSS 1000 IV (09:43)
[2023-08-19] MEDS: CLEOCIN 50 IV ×2 (09:44→17:44)
[2023-08-19] MEDS: VITAMIN B-12 1000 MCG PO (09:49)
--- NOTE | 2023-08-19 10:50 | PTCARENOTE ---
Patient AAOx3, flat, with no complaints. Wound vac intact and working properly. VSS. RA, NSR. Patient making needs known. Continuing to closely monitor.
[2023-08-19 12:04] LABS: Glucose - Point of Care 112 mg/dl (70-99)
[2023-08-19] MEDS: FERRLECIT 110 MG IV (13:25)
[2023-08-19] MEDS: ROCEPHIN 2000 MG IV (13:25)
[2023-08-19] MEDS: STERILE WATER FOR INJECTION 20 ML IV (13:25)
[2023-08-19 16:28] LABS: Glucose - Point of Care 121 mg/dl (70-99)
[2023-08-19] MEDS: LOVENOX 40 MG SC (17:43)
[2023-08-19] MEDS: SENOKOT 17.1999999999999993 MG PO (19:28)
--- NOTE | 2023-08-19 20:05 | PTCARENOTE ---
Pt received from day shift RN. Pt c/o body aches and generalized discomfort, ordered Tylenol administered for pain, temp 99.0. Abdominal wound vac in use. No leakage noted. NPWT maintained and intact. Pm meds administered. No acute changes at this
time. Please see nursing shift assessment for full head to toe. Call dumont in reach.
[2023-08-19] MEDS: LEXAPRO 10 MG PO (21:44)
[2023-08-19] MEDS: TRICOR 145 MG PO (21:44)
[2023-08-19 22:25] LABS: Glucose - Point of Care 104 mg/dl (70-99)
[2023-08-20] VITALS (11 sets, daily range): BP systolic 115–163; BP diastolic 63–81; PULSE 65–66; O2SAT 97–98
[2023-08-20] MEDS: TYLENOL 1000 MG PO ×2 (01:26→21:55)
[2023-08-20] MEDS: CLEOCIN 50 IV (01:27)
[2023-08-20 05:22] LABS: Hematocrit 28.3 % (39.0-52.0); Hemoglobin 9.1 g/dL (13.0-18.0); Mean Corp Hgb Conc. 32.2 g/dL (33.0-37.0); Mean Corpuscular Volume 87.1 fL (80.0-94.0); Mean Platelet Volume 9.4 fL (7.4-10.4); Platelet Count 206 10^3/uL (130-400); Red Blood Cell Count 3.25 10^6/uL (4.70-6.10); Red Cell Dist. Width 13.2 % (11.5-14.5); White Blood Cell Count 5.8 10^3/uL (4.8-10.8)
[2023-08-20 05:55] LABS: Blood Urea Nitrogen 16 mg/dl (9-20); Calcium 9.3 mg/dl (8.4-10.2); Carbon Dioxide 27 mmol/L (22-30); Chloride 108 mmol/L (98-107); Estimated Creatinine Clearance 77 ml/min; Glucose 97 mg/dl (70-99); Potassium 3.5 mmol/L (3.5-5.1); Sodium 140 mmol/L (135-145); eGFR > 60.00
--- NOTE | 2023-08-20 06:21 | W.PN.HOSP.TC ---
Today's Communication/Plan
-
.
Assessment / Plan
Assessment / Plan
Physical Exam
General: No Apparent Distress and Appears Chronically Ill
HEENT: Normocephalic and Anicteric
Respiratory: good air, not much Rhonchi.
Cardiac: S1/S2 and Regular Rhythm
Neuro: AO x 3, he followed commands.
Abdomen: soft , non tender, wound vac on anterior abdomen.
Psych: Calm
67-year-old male presented to the hospital with rigors and chills. Also had some vomiting. He was slightly hypoxic in the ER required 2 L of oxygen.
Patient had robotic prostatectomy at [facility] in February. This was complicated by small bowel injury while withdrawing the robot. Patient underwent surgery and had drains. He has had a chronic wound on the abdominal wall since
February 2023. He has a wound VAC and had seen his urologist Dr. Villavicencio. Plan is to take patient off of wound VAC and to have a plastic surgery appointment on Wednesday.
# Sepsis with septic shock/ Group A Strep bacteremia
He is feeling better
Denies cough
Off nasal O2
Blood CX with Strep Pyogens, repeat blood culture NGTD
c/w IV ABx Rocephin and Clindamycin
Ultrasound of the left chest with small fluid only
Lactic acidosis-resolved.
WBC normalized.
Repeat chest x ray
Appreciate ID Help
# History of prostate cancer and prostate surgery in February 2023 at [facility] complicated with bowel injury requiring drains and now has a wound VAC
Wound Evaluation
He has a wound VAC and had seen his urologist Dr. Villavicencio. Plan is to take patient off of wound VAC and to have a plastic surgery appointment on Wednesday.
# Constipation-Resolved
# Anemia-THALIA and low B12 replace both
# Type 2 diabetes-hold metformin till tomorrow - IV dye
Hemoglobin A1c at 6.2
Accu-Cheks and sliding scale coverage
# Primary Hypertension
Stable BP, off GUILHERME for now
# Hyperlipidemia-continue fenofibrate
# Depression-continue Lexapro
# GERD-continue PPI
# Hyperlipidemia
# Ex-smoker
D/W RN
Total time spent to see the patient, examine the patient on the floor, review data and lab results, discuss treatment plan with patient and nursing staff around 55 minutes
Anticipated Discharge: > 48 hours
Subjective/Interval History
-
Date of Service: August 20, 2023
No chest pain, no sob, no cough
An episode of rigor at night with temp at 99.0 , given Tylenol.
Objective Data
-
Labs:
Laboratory Results
08/20/23
05:08
WBC Pending
Hgb Pending
Hct Pending
Plt Count Pending
Sodium 140
Potassium 3.5
Chloride 108 H
Carbon Dioxide 27
BUN 16
Creatinine 0.9
Glucose 97
Calcium 9.3
Vital Signs:
Vital Signs
Temp Pulse Resp BP Pulse Ox
99.1 F 72 19 118/66 95
08/20/23 03:29 08/20/23 02:00 08/20/23 02:00 08/20/23 02:00 08/20/23 00:00
I&O
08/18/23 08/19/23 08/20/23
06:59 06:59 06:59
Intake Total 3250 / 3250
Output Total 400 / 400 1475 / 1475
Balance 2850 / 2850 -1475 / -1475
[2023-08-20 07:49] LABS: Glucose - Point of Care 90 mg/dl (70-99)
[2023-08-20] MEDS: GLUCOPHAGE XR EXTENDED RELEASE 500 MG PO (07:57)
[2023-08-20] MEDS: MIRALAX 17 GRAMS PO (07:57)
[2023-08-20] MEDS: VITAMIN B-12 1000 MCG PO (07:57)
[2023-08-20] MEDS: SENOKOT PO ×2 (08:09→20:56)
--- NOTE | 2023-08-20 08:42 | PTCARENOTE ---
Patient received from car shifter. Patient resting comfortably in bed. AAO, VSS. No events noted over night. No complaints of pain at this time. Patient with wound vac, good seal and suction working. Low to no output, patient states there is
usually more. Wound nurse to see patient today. Currently on Room Air. Call dumont in reach.
--- NOTE | 2023-08-20 10:05 | W.PN.ID1 ---
Date of Service
Date of Service: August 20, 2023
Today's Communication
- Continue ceftriaxone (d4)
- At time of discharge, transition to amoxicillin 1000 mg po q8 through 08/30/23.
Assessment / Plan
# Group A Strep bacteremia
# Unlikely PNA - pt wo respiratory symptoms
# s/p Septic shock resolved
-Source of GAS bacteremia probably from right forearm wound abrasion (pet dog scratch)
- Abd wound swab + GAS, but wound looks clean without infection.
-CT a/p unremarkable
- repeat blood cx' neg to date.
-TTE negative vegetation
- pt clinically improving - dc IV clindamycin
- Continue ceftriaxone (d4)
- At time of discharge, transition to amoxicillin 1000 mg po q8 through 08/30/23.
# Additional Past Medical History:
Diabetes mellitus
Hypertension
HLD
Prostate cancer status post prostatectomy complicated by small bowel injury,(02/2023 at [facility]), abscesses prolonged drain till 06/2023,now with abdominal wound VAC
Chief Complaint
-: Clinical Sepsis and Bacteremia
Subjective / Review of Systems
Feeling better today.
Daughter at bedside. She states family dog scratched his right forearm on Wednesday.
Patient will like to attend his grandson's sabianist this Wednesday.
Vital Signs / Physical Exam
Vital Signs
Vital Signs
Temp Pulse Resp BP Pulse Ox
98.9 F 52 18 115/63 97
08/20/23 07:05 08/20/23 06:00 08/20/23 06:00 08/20/23 06:00 08/20/23 06:00
Physical Exam
Constitutional: Comfortable
Cardiovascular: Regular Rate and S1/S2
Pulmonary: Other (decreased BS left base)
Gastrointestinal: Soft, Non Tender and Non Distended
Extremities: Negative Edema
Wound: Other (abdominal wound examined during vac change: large wound with pale pink granulation tissue without drainage nor deep tracking.)
Neurological: AO x 3
Objective Data
Lab Data
Lab Results
08/20/23 05:08
08/20/23 05:08
Estimated Creat Clear 77 ml/min 08/20/23 05:08
Lactic Acid 1.9 mmol/L (0.7-2.0) 08/18/23 16:31
Total Bilirubin 0.4 mg/dl (0.2-1.3) 08/18/23 06:14
AST 17 U/L (17-59) 08/18/23 06:14
ALT < 10 U/L (0-50) 08/18/23 06:14
Alkaline Phosphatase 71 U/L (38-126) 08/18/23 06:14
Most recent labs reviewed.
Micro Results:
08/17/23 23:21 Blood Culture - Final
Blood/Venous Streptococcus pyogenes
Gram Stain - Final
08/19/23 03:48 Blood Culture - Preliminary
Blood/Venous No Growth in 24 hours- Final report to follow
08/18/23 12:17 Blood Culture - Preliminary
Blood/Venous No Growth in 24 hours- Final report to follow
08/18/23 11:36 Wound Culture - Preliminary
Abdomen Streptococcus pyogenes
Diptheroids
Gram Stain - Preliminary
08/17/23 22:11 Blood Culture - Preliminary
Blood/Venous Streptococcus pyogenes
Gram Stain - Final
08/18/23 06:14 MRSA Screen - Final
Nose Staph aureus MRSA
08/17/23 23:21 Influenza Types A & B (FILIBERTO) - Final
Nasal Swab Negative for Influenza A & B, NAAT
Negative results must be combined with clinical observations
and patient history.
Nucleic Acid Amplification test (NAAT)performed on the
[employer] platform.
08/17/23 CT a/p: Open wound is seen within the anterior abdominal wall near the midline, with a wound VAC. No abscess is seen adjacent to the open wound. Abdominal wall fascia appears to be intact. Severe fecal retention within the rectum, which
measures 8 cm in diameter. Findings may be related to severe constipation, and/or fecal impaction.
08/17/23 CXR: Small partially loculated left pleural effusion with associated left basilar airspace disease suspicious for pneumonia.
Care Review
Plan reviewed with: Physician (Dr. Suarez)
[2023-08-20] MEDS: CLEOCIN IV (10:08)
--- NOTE | 2023-08-20 10:25 | WOUNDNOTE ---
WON RN NOTE: Wound vac changed with assist from nurse Dr. Donaldo Headley at bedside to see wound. Patient tolerated procedure. No change in wound care will follow next week if still here. Home vac unit remains plugged in to charge in has another
canister and foam kit.
[2023-08-20 11:09] LABS: Glucose - Point of Care 99 mg/dl (70-99)
--- NOTE | 2023-08-20 13:19 | CM ---
Patient with Dx Sepsis with septic shock/ Group A Strep bacteremia. Room air. Receiving IV Abx. Patient transferring from IMU to [facility] today. Seen by wound care nurse abd wall wound - wound VAC. PT; requires assist of 2, recommend skilled
rehab. OT; max assist for toileting & LE self care, recommends skilled rehab.
As per prior CM notes, patient declined to consider going to SNF for rehab, however agreed to home with resumption of [facility].
Patient accepted by [facility] to resume service.
Per wound care notes, patient has home Wound VAC.
Per MD notes plan is for discontinuation of wound VAC on Wednesday with plastic surgery appt.
Plan continue to follow patient's progress with PT/OT and offer Caregiver services as needed.
Plan home with resumption of [facility].
[2023-08-20] MEDS: ROCEPHIN 2000 MG IV (13:44)
[2023-08-20] MEDS: FERRLECIT 110 MG IV (13:44)
[2023-08-20] MEDS: STERILE WATER FOR INJECTION 20 ML IV (13:44)
--- NOTE | 2023-08-20 15:40 | PTCARENOTE ---
Report called to Daphney ALSTON, 2N. Patient sent with over via transport on a stretcher will all known belongings. Family accompanying.
--- NOTE | 2023-08-20 16:30 | PTCARENOTE ---
Received patient as transfer from IMU into room 2121. Patient AAOx3, VSS, R arm foam intact, abdomen wound vac intact with pump setting at 125 mmHg continuous. Patient x2 assist to turn and reposition in bed, oriented to room and call dumont; call
dumont and urinal placed at bedside, patient states no concerns at this time.
[2023-08-20 17:39] LABS: Glucose - Point of Care 120 mg/dl (70-99)
[2023-08-20] MEDS: LOVENOX 40 MG SC (17:59)
[2023-08-20] MEDS: TRICOR 145 MG PO (20:55)
[2023-08-20] MEDS: LEXAPRO 10 MG PO (20:55)
[2023-08-20 21:11] LABS: Glucose - Point of Care 116 mg/dl (70-99)
[2023-08-21 07:05] VITALS: BP 154/74
[2023-08-21 07:27] LABS: Glucose - Point of Care 92 mg/dl (70-99)
[2023-08-21] MEDS: MIRALAX 17 GRAMS PO (08:34)
[2023-08-21] MEDS: SENOKOT 17.1999999999999993 MG PO (08:34)
[2023-08-21] MEDS: VITAMIN B-12 1000 MCG PO (08:34)
[2023-08-21] MEDS: GLUCOPHAGE XR EXTENDED RELEASE 500 MG PO (08:34)
--- NOTE | 2023-08-21 11:05 | CM ---
CM reviewed pt with Dr Suarez- plan for dc today
Update provided to Sweta CASANOVA and clinicals faxed via [facility]
Bedside meeting with pt
Plan remains home with [facility]/VN
IMM verbally reviewed due to contact precautions-copy provided
He will call family for ride home
Discharge Disposition- home with Sweta CASANOVA [facility] via family transport
Fax- [phone]
[2023-08-21 11:30] LABS: Glucose - Point of Care 129 mg/dl (70-99)
[2023-08-21 11:35] VITALS: BP 127/75
--- NOTE | 2023-08-21 12:25 | W.DCSUMMARY ---
Discharge Summary
Discharge Data
Date of Admission: 08/18/23
Date of Discharge: 08/21/23
-
Pending Results: No
Hospital Course
67 years old male who presented to the emergency room with rigors and chills. He had vomiting. Patient had history of sepsis in the past and family was concerned about recurrence. Patient was noted to have shortness of breath and was placed on
2 L oxygen. He also had tachycardia, tachypnea and mild lactic acidosis. Initial concern was possible pneumonia. Patient was started on intravenous antibiotics. Blood cultures showed group A streptococcus bacteremia. Infectious disease doctor
evaluated the patient. Patient did not have persistent respiratory symptoms and the likelihood of pneumonia was diminished. He had a scan of the abdomen and pelvis that was unremarkable. Repeat blood culture remained negative. Chest ultrasound
showed small left pleural effusion that was insufficient for ultrasound-guided thoracentesis. Leukocytosis resolved. He did not have fever. Oxygen saturation was normal on room air. He had transthoracic echocardiogram with no vegetation, left
ventricular ejection fraction of 67%, normal right ventricular size and function, mild mitral regurgitation/mild mitral stenosis, trace tricuspid regurgitation. He started to improve clinically. He was able to tolerate diet. Patient was given
prescription for amoxicillin to finish the course at home. Patient was evaluated by physical therapy and recommended half-way facility placement. Patient and family declined and wanted home health services with resumption of wound VAC care
at home. He remained hemodynamically stable and was discharged in a stable condition.
Physical Exam
General: No Apparent Distress and Appears Chronically Ill
HEENT: Normocephalic and Anicteric
Respiratory: good air, not much Rhonchi.
Cardiac: S1/S2 and Regular Rhythm
Neuro: AO x 3, he followed commands.
Skin: No bruising. Not jaundiced.
Abdomen: soft , non tender, wound vac on anterior abdomen.
Psych: Calm.
Total discharge time spent to see the patient, examine the patient on the floor, review data and lab results, discuss discharge plan with patient, , community case manager and nursing staff around 65 minutes
Discharge Plan
-
Patient Disposition: Home with Home Care
Discharge Diagnosis/Procedures: Group A Strep bacteremia
You are followed by infectious diseases doctor. You received intravenous antibiotic. Repeat the blood culture remained clean. Continue amoxicillin through 08/30/23.
Diet: As tolerated
Activity Restrictions/Additional Instructions:
Wound Care Instructions
Abdomen: adaptic then black foam to 125mmhg Change as previously done at home 2 x wk and prn if unable to obtain a seal. Low Intensity, Continuous at 125 mmHg. Upon discharge or transfer to another facility, remove VAC foam and apply NS moistened
gauze dressing unless home VAC unit available.
Referrals:
Michela Fulton MD [Active] -
Killian Powell DO [Family Provider] - in one to two weeks
Prescriptions:
New
amoxicillin 500 mg capsule
1,000 mg PO Q8H Qty: 60 0RF
Continued
lisinopril 20 MG tablet
20 mg PO DAILY
fenofibrate nanocrystallized 145 MG tablet
145 mg PO HS
metformin 500 mg tablet extended release 24 hr
500 mg PO DAILY
escitalopram oxalate 10 mg tablet
10 mg PO HS
cholecalciferol (vitamin D3) [Vitamin D3] 50 mcg (2,000 unit) Tablet
50 mcg PO DAILY
ibuprofen 200 mg Capsule
400 - 600 mg PO Q6H PRN (Reason: mild pain)
acetaminophen 500 mg Tablet
1,000 mg PO Q6H PRN (Reason: mild pain)
omeprazole magnesium [Prilosec OTC] 20 mg Tablet,Delayed Release (Dr/Ec)
20 mg PO DAILY PRN (Reason: acid reflux/heartburn)
Discontinued
oxycodone 10 mg tablet
5 mg PO Q8H PRN (Reason: moderate pain/wound vac changes)
Patient Comments:
08/17/2023: last filled , 90 tabs for 30 days from [facility][id number]
Discharge Orders:
Discharge Patient (As Directed); Ordered 08/21/23
Ordered By: Nirmal Suarez
Discharge Date and Time
Print Language: SOU[place] KORE[place]
--- NOTE | 2023-08-21 13:12 | PTCARENOTE ---
pt Dc'd home today at bedside, switched wound vac from ours to his own without any issues.
--- NOTE | 2023-08-23 07:42 | WOUNDNOTE ---
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
== END 2023-08-21 12:45 | disposition home health service (06) | DRG 871 ==
LOC: 2 NORTH 04:25
PROVIDERS: Hospitalist; Nurse Practitioner Family; ADMITTING PHYSICIAN Internal Medicine; ATTENDING PHYSICIAN Internal Medicine; EMERGENCY PHYSICIAN Emergency Medicine; FAMILY PHYSICIAN Internal Medicine; OTHER PHYSICIAN Internal Medicine Infectious Disease
DX: A40.0 Sepsis due to streptococcus, group A (principal); J18.9 Pneumonia, unspecified organism; R65.21 Severe sepsis with septic shock; E87.20 Acidosis, unspecified; Z11.52 Encounter for screening for COVID-19; E11.9 Type 2 diabetes mellitus without complications; I10 Essential (primary) hypertension; R65.20 Severe sepsis without septic shock; Z87.891 Personal history of nicotine dependence; E78.00 Pure hypercholesterolemia, unspecified; K21.9 Gastro-esophageal reflux disease without esophagitis
CPT/HCPCS: 71045; 74177; 76604; 80048; 80053; 80202; 81003; 82607; 82728; 82962; 83036; 83540; 83550; 83605; 83735; 85025; 85027; 87040; 87070; 87077; 87147; 87186; 87205; 87502; 87811; 93005; 93306; 97116; 97163; 97167; 97530; 97535; 99291; J2916; Q9967

== ENCOUNTER → 2023-09-08 12:00 | Outpatient (REF) | payer MEDICARE, BC, SELFPAY | LOC: HWRAD 12:00 | PROVIDERS: ATTENDING PHYSICIAN Nurse Practitioner Family | DX: R05.3 Chronic cough (principal); R09.89 Other specified symptoms and signs involving the circulatory and respiratory systems | CPT/HCPCS: 71046 ==

== ENCOUNTER 2024-01-28 09:12 | Outpatient (RCR) | payer MEDICARE, BC, SELFPAY | END 2024-01-28 23:59 | disposition home or self-care (01) | LOC: RPT 09:12 | PROVIDERS: ATTENDING PHYSICIAN Urology; FAMILY PHYSICIAN Internal Medicine | DX: D07.5 Carcinoma in situ of prostate (principal); N39.46 Mixed incontinence; Z73.6 Limitation of activities due to disability; R20.0 Anesthesia of skin; R20.2 Paresthesia of skin; Z90.79 Acquired absence of other genital organ(s) | CPT/HCPCS: 97110; 97161; 97530 ==

== ENCOUNTER 2024-02-08 11:56 | Outpatient (RCR) | payer MEDICARE, BC, SELFPAY | END 2024-02-23 07:25 | disposition home or self-care (01) | LOC: RPT 11:56 | PROVIDERS: ATTENDING PHYSICIAN Urology; FAMILY PHYSICIAN Internal Medicine | DX: D07.5 Carcinoma in situ of prostate (principal); N39.46 Mixed incontinence; Z73.6 Limitation of activities due to disability; Z90.79 Acquired absence of other genital organ(s) | CPT/HCPCS: 97110; 97112 ==

== ENCOUNTER 2024-02-11 12:57 | Emergency (ER) | payer MEDICARE, BC, SELFPAY ==
[2024-02-11] VITALS (11 sets, daily range): BP systolic 113–167; BP diastolic 67–86
[2024-02-11 14:00] LABS: % Basophils 0.7 % (0-2); % Eosinophils 2.4 % (0-6); % Immature Granulocytes 0.8 % (0-0.5); % Lymphocytes 11.4 % (20.5-51.1); % Neutrophils 76.7 % (42.2-75.2); Absolute Basophils 0.1 10^3/uL (0-0.2); Absolute Eosinophils 0.2 10^3/uL (0-0.7); Absolute Immature Granulocytes 0.1 10^3/uL (0-0.05); Absolute Lymphocytes 1.1 10^3/uL (1.2-3.4); Absolute Monocytes 0.8 10^3/uL (0.1-0.6); Absolute Neutrophils 7.5 10^3/uL (1.4-6.5); Hematocrit 34.7 % (39.0-52.0); Hemoglobin 12.5 g/dL (13.0-18.0); Mean Corpuscular Hgb 29.5 pg (27.0-31.0); Mean Corpuscular Volume 81.8 fL (80.0-94.0); Mean Platelet Volume 9.7 fL (7.4-10.4); Nucleated Red Blood Cells % 0 % (-); Platelet Count 298 10^3/uL (130-400); Red Blood Cell Count 4.24 10^6/uL (4.70-6.10); Red Cell Dist. Width 12.2 % (11.5-14.5); White Blood Cell Count 9.8 10^3/uL (4.8-10.8)
[2024-02-11 14:13] LABS: ALT (SGPT) 14 U/L (0-50); AST (SGOT) 16 U/L (17-59); Albumin 4.5 g/dl (3.5-5.0); Alkaline Phosphatase 81 U/L (38-126); Blood Urea Nitrogen 32 mg/dl (9-20); Calcium 10.4 mg/dl (8.4-10.2); Carbon Dioxide 25 mmol/L (22-30); Chloride 98 mmol/L (98-107); Glucose 231 mg/dl (70-99); Lipase 63 U/L (23-300); Potassium 4.5 mmol/L (3.5-5.1); Sodium 137 mmol/L (135-145); Total Bilirubin 0.8 mg/dl (0.2-1.3); Total Protein 7.6 g/dl (6.3-8.2); eGFR > 60.00
--- NOTE | 2024-02-11 14:55 | ED.GENMED ---
History of Present Illness
<SATNHOSH Cooper - Last Filed: 02/11/24 21:19>
General
Chief Complaint: Abdominal Pain
Source: patient and family
Exam Limitations: none
Time Seen by Provider: 02/11/24 14:18
Nursing documentation reviewed up to this point in time: agreed with
History of Present Illness
History of Present Illness:
Patient is a 68-year-old male with history of hypertension hyperlipidemia prostatectomy in February 2023 with complicated small bowel perforation with resection and intra-abdominal abscess and ventral hernia.
Patient has had skin flapping at [facility] in October 2023. Patient was brought by family for 2 weeks of increasing weakness. They also feel that the skin flap seems a little more swollen than normal and patient has been complaining of some left-sided
abdominal pain. No chills. Patient had a temperature of 99 on Wednesday. He has a mild chronic cough no shortness of breath or chest pain. Denies any black or dark stools.
Past History
<SANTHOSH Cooper - Last Filed: 02/11/24 21:19>
Past History
ED Past Medical History: HTN, Hypercholesterolemia and NIDDM
ED Past Surgical History: Bowel resection and Urological
Social History
Tobacco: Non-smoker
Alcohol: Occasional
Drug: None
Personal:
Living: with family
Employment: Retired
Review of Systems
<SANTHOSH Cooper - Last Filed: 02/11/24 21:19>
Review of Systems
Allergies reviewed?: Yes
All Other Systems: ROS reviewed and negative except as documented in HPI and ROS
Constitutional: Reports fatigue; Denies chills
Respiratory: Reports no symptoms
Cardiac: Reports no symptoms
ABD/GI: Reports abdominal pain; Denies nausea or vomiting
: Reports no symptoms
Musculoskeletal: Reports no symptoms
Skin: Reports no symptoms
Neurological: Reports no symptoms
Psychiatric: Reports no symptoms
Phy Exam
<SANTHOSH Cooper - Last Filed: 02/11/24 21:19>
General Physical Exam
General Presentation: no apparent distress
General age: appears stated age
General Skin: warm and dry
General Habitus: normal
General Mental: alert
General Hydration: appears well hydrated
Cardiovascular Exam
Cardiovascular Exam: regular rate/rhythm, no murmur and normal peripheral pulses
Pulmonary Exam
Pulmonary Exam: lungs clear and no respiratory distress
Gastrointestinal Exam
Gastrointestinal Exam: other (Skin graft to anterior abdomen soft no drainage )
Neurological Exam
Neurological Exam: alert and oriented x3
Musculoskeletal Exam
Musculoskeletal Exam: full ROM
Skin Exam
Skin Exam: normal color and warm/dry
Psychiatric Exam
Psychiatric Exam: normal mood/affect
Course
<SANTHOSH Cooper - Last Filed: 02/11/24 21:19>
Orders/Labs/Results
Orders:
Orders
02/11/24 13:37
Complete Blood Count/With Diff Urgent
Comprehensive Metabolic Panel Urgent
Lipase Urgent
02/11/24 15:11
CT Abd/pel W Iv And Oral Contr Urgent
Comment:
Reason For Exam: abd pain hx of resection/ventral hernia/skin flap
Iohexol [Omnipaque] See Protocol PO NOW STA
02/11/24 15:12
0.9% Sodium Chloride 1000 ml [Nss] 1,000 ml IV BOLUS
02/11/24 16:27
UA Reflex to Culture [Urinalysis Reflex To Culture] Urgent
Date Specimen was Collected: 02/11/24
Time Specimen was Collected: 16:17
02/11/24 19:28
Piperacillin/Tazo 3.375 Gram [Zosyn] 3.375 gram in 50 ml IV NOW
02/11/24 21:10
Cephalexin Monohydrate [Keflex] 500 mg PO NOW STA
Abnormal Lab Results
02/11/24 02/11/24
13:37 16:27
RBC 4.24 L 10^6/uL
(4.70-6.10)
Hgb 12.5 L g/dL
(13.0-18.0)
Hct 34.7 L %
(39.0-52.0)
Abs Immat Gran (auto) 0.1 H 10^3/uL
(0-0.05)
Absolute Neuts (auto) 7.5 H 10^3/uL
(1.4-6.5)
Absolute Lymphs (auto) 1.1 L 10^3/uL
(1.2-3.4)
Absolute Monos (auto) 0.8 H 10^3/uL
(0.1-0.6)
Immature Gran % 0.8 H %
(0-0.5)
Neutrophils % 76.7 H %
(42.2-75.2)
Lymphocytes % 11.4 L %
(20.5-51.1)
BUN 32 H mg/dl
(9-20)
Glucose 231 H mg/dl
(70-99)
Calcium 10.4 H mg/dl
(8.4-10.2)
AST 16 L U/L
(17-59)
Urine Urobilinogen 2+ A
(Neg - 1+)
Urine Glucose 3+ A
(Negative)
02/11/24 13:37
02/11/24 13:37
Vital Signs
Initial and Last Documented VS:
Initial Vital Signs
Temp Pulse Resp BP Pulse Ox
36.7 C 80 16 113/71 97
02/11/24 13:11 02/11/24 13:11 02/11/24 13:11 02/11/24 13:11 02/11/24 13:11
Last Documented Vital Signs
Temp Pulse Resp BP Pulse Ox
36.7 C 78 18 140/79 99
02/11/24 13:11 02/11/24 19:44 02/11/24 19:44 02/11/24 18:00 02/11/24 18:00
<Baljinder Chandler MD - Last Filed: 02/11/24 21:21>
Orders/Labs/Results
Orders:
Orders
02/11/24 13:37
Complete Blood Count/With Diff Urgent
Comprehensive Metabolic Panel Urgent
Lipase Urgent
02/11/24 15:11
CT Abd/pel W Iv And Oral Contr Urgent
Comment:
Reason For Exam: abd pain hx of resection/ventral hernia/skin flap
Iohexol [Omnipaque] See Protocol PO NOW STA
02/11/24 15:12
0.9% Sodium Chloride 1000 ml [Nss] 1,000 ml IV BOLUS
02/11/24 16:27
UA Reflex to Culture [Urinalysis Reflex To Culture] Urgent
Date Specimen was Collected: 02/11/24
Time Specimen was Collected: 16:17
02/11/24 19:28
Piperacillin/Tazo 3.375 Gram [Zosyn] 3.375 gram in 50 ml IV NOW
02/11/24 21:10
Cephalexin Monohydrate [Keflex] 500 mg PO NOW STA
Abnormal Lab Results
02/11/24 02/11/24
13:37 16:27
RBC 4.24 L 10^6/uL
(4.70-6.10)
Hgb 12.5 L g/dL
(13.0-18.0)
Hct 34.7 L %
(39.0-52.0)
Abs Immat Gran (auto) 0.1 H 10^3/uL
(0-0.05)
Absolute Neuts (auto) 7.5 H 10^3/uL
(1.4-6.5)
Absolute Lymphs (auto) 1.1 L 10^3/uL
(1.2-3.4)
Absolute Monos (auto) 0.8 H 10^3/uL
(0.1-0.6)
Immature Gran % 0.8 H %
(0-0.5)
Neutrophils % 76.7 H %
(42.2-75.2)
Lymphocytes % 11.4 L %
(20.5-51.1)
BUN 32 H mg/dl
(9-20)
Glucose 231 H mg/dl
(70-99)
Calcium 10.4 H mg/dl
(8.4-10.2)
AST 16 L U/L
(17-59)
Urine Urobilinogen 2+ A
(Neg - 1+)
Urine Glucose 3+ A
(Negative)
02/11/24 13:37
02/11/24 13:37
Vital Signs
Initial and Last Documented VS:
Initial Vital Signs
Temp Pulse Resp BP Pulse Ox
36.7 C 80 16 113/71 97
02/11/24 13:11 02/11/24 13:11 02/11/24 13:11 02/11/24 13:11 02/11/24 13:11
Last Documented Vital Signs
Temp Pulse Resp BP Pulse Ox
36.7 C 78 18 140/79 99
02/11/24 13:11 02/11/24 19:44 02/11/24 19:44 02/11/24 18:00 02/11/24 18:00
<SANTHOSH Cooper - Last Filed: 02/11/24 21:19>
MDM/Problems Addressed
MDM/Problems Addressed:
60-year-old male complicated history including bowel perforation, intra-abdominal abscesses and reconstructive graft surgery of skin of abdomen October 2023 done by [facility] presents to the ER for evaluation of weakness. In addition patient does complain
of some discomfort around scar and skin graft. Skin graft appears soft. Patient is nontoxic afebrile normal white count CAT scan however does show however new soft tissue abscess along the left anterior abdominal wall deep to the rectus abdominis.
Will notify Dr. Humza Burns at [facility].
Case reviewed with . I did review patient's symptoms including feeling mildly weak and left side abdominal discomfort. I reviewed CAT scan of findings of abscess. With patient having a normal white count normal white count and no fever
he is comfortable patient being discharged from here and following up in his office Wednesday morning. He will arrange IR drainage if needed.
PT was evaluated by DR Chandler.
Pt daughter and did talk it over patient wishes to try to go home. Will give dose of Keflex here in the ER for tomorrow and will send a prescription to the pharmacy patient is to show up at Dr. Burns's office on Wednesday.
However I did review with patient family to return if any worsening of symptoms or increased pain fever chills or any further concerns.
<SANTHOSH Cooper - Last Filed: 02/11/24 21:19>
*Radiology
Radiology exam reviewed: radiology read reviewed (CAT scan shows new soft tissue abscess along the left anterior abdominal wall deep into the rectus abdominis)
*Critical Care Note
Total Time (30-74mins, 75-104mins- exclusive of procedures): Not Applicable
ED Attending Note
<SANTHOSH Cooper - Last Filed: 02/11/24 21:19>
-
Portions of this chart may have been created with voice recognition software.� Occasional wrong word or��sound alike� substitutions may have occurred due to the inherent limitations of voice recognition software.
<Baljinder Chandler MD - Last Filed: 02/11/24 21:21>
ED Attending Note
Patient seen and examined by attending physician: Yes
ED Attending Note:
I have seen and evaluated the patient with a [id number] encounter. I have spoken to the advance practicer provider and involved in the medical history, the physical exam, medical decision making.
Evaluation and management service: agree unless noted differently below.
Results interpretation: agree unless noted differently below.
Focused HPI: 68-year-old male with past medical history as documented notable for complicated abdominal surgical history who presents to the ER for evaluation of abdominal pain, fatigue. Patient reports he has been feeling fatigued x 2 weeks. He
had 2 episodes over the past 2 weeks of rather severe night sweats/chills. Over the past few days he has had increasing pain in the left abdomen. Came to the ER for evaluation. He has been following at [facility] with plastic surgery; he
had prostatectomy that was unfortunately complicated by bowel perforation and intra-abdominal abscesses and has required multiple surgeries. He also required skin grafting to cover abdominal wounds. Most recent surgery was in October. He has not had
fever. No vomiting. No diarrhea. No urinary symptoms.
Physical exam: Awake alert not in distress. Vitals normal�notably afebrile. Abdomen is soft, mildly tender lateral abdomen. He has skin grafting on ventral abdomen.
Medical Decision Makin-year-old male with history as above presents with chills and increasing left-sided abdominal pain. Vitals normal. Exam as above. Labs were sent off including a CBC which showed no clinically significant
abnormalities�notably normal white count. Chemistry was significant for hyperglycemia to 230�patient says 'this is normal for me.' He has no signs of DKA. Urinalysis no signs of infection, no ketones. CT abdomen pelvis did show the left sided
abdominal wall abscess. MCKENNA discussed case with plastic surgeon at [facility]�discussion about transfer, they recommended holding off on emergent transfer with nontoxic patient instead starting on antibiotics by mouth and having him
follow-up Wednesday morning in the office. I had a long discussion with the patient and his family including his daughter who is a nurse. Explained that definitive treatment for an abscess is drainage and the antibiotics are at best a temporizing
measure. I explained that there is risk of progression without drainage and that this needs to be monitored very closely. I offered to admit patient, transfer to [facility] for trial 2 days of antibiotics with plan for follow-up Wednesday with plastic
surgeon as an outpatient (as recommended by plastic surgeon). Patient and family feel comfortable with a trial of discharge but I did stress with him the importance of very strict return precautions including any fever, worsening pain, or any
concerning symptoms.
Discharge Plan
Departure
Prescriptions:
No Action
lisinopril 20 MG tablet
20 mg PO DAILY
fenofibrate nanocrystallized 145 MG tablet
145 mg PO HS
metformin 500 mg tablet extended release 24 hr
500 mg PO TID
escitalopram oxalate 10 mg tablet
10 mg PO HS
cholecalciferol (vitamin D3) [Vitamin D3] 50 mcg (2,000 unit) Tablet
50 mcg PO DAILY
omeprazole magnesium [Prilosec OTC] 20 mg Tablet,Delayed Release (Dr/Ec)
20 mg PO DAILYPRN PRN (Reason: acid reflux/heartburn)
gabapentin 100 mg capsule
200 mg PO HS
dapagliflozin propanediol [Farxiga] 5 mg tablet
5 mg PO DAILY
Referrals:
Killian Powell DO [Family Provider] -
Interventions
Interventions:
*Risk Screen - Suicide Last Done: 02/11/24 14:27
*General Assessment Last Done: 02/11/24 14:27
*Neglect/Abuse Screening Last Done: 02/11/24 14:27
*ED COVID-19 Vaccine History Last Done: 02/11/24 14:27
[id number] Assessment Last Done: 02/11/24 14:30
Discharge Date and Time
Print Language: MEXICAN
[2024-02-11] MEDS: NSS 1000 IV (15:39)
[2024-02-11] MEDS: OMNIPAQUE 50 ML PO (15:39)
[2024-02-11 16:43] LABS: Urine Albumin Negative (Neg - Trace); Urine Bilirubin Negative (Negative); Urine Character Clear (Clear); Urine Color Yellow; Urine Glucose 3+ (Negative); Urine Ketone Negative (Negative); Urine Leukocyte Negative (Negative); Urine Nitrite Negative (Negative); Urine Occult Blood Negative (Negative); Urine Urobilinogen 2+ (Neg - 1+)
[2024-02-11] MEDS: ZOSYN 50 IV (19:42)
[2024-02-11] MEDS: KEFLEX 500 MG PO (21:33)
== END 2024-02-11 21:41 | disposition home or self-care (01) ==
LOC: EMR 12:57
PROVIDERS: Nurse Practitioner; Student in an Organized Health Care Education/Training Program; EMERGENCY PHYSICIAN Emergency Medicine; FAMILY PHYSICIAN Internal Medicine
DX: L02.211 Cutaneous abscess of abdominal wall (principal); I10 Essential (primary) hypertension; E78.00 Pure hypercholesterolemia, unspecified
CPT/HCPCS: 99285; 96365; 96361; 74177; 80053; 81003; 83690; 85025; Q9967

== ENCOUNTER 2024-04-04 11:02 | Outpatient (RCR) | payer MEDICARE, BC, SELFPAY | END 2024-04-04 23:59 | disposition home or self-care (01) | LOC: RPT 11:02 | PROVIDERS: FAMILY PHYSICIAN Internal Medicine | DX: R32 Unspecified urinary incontinence (principal); Z73.6 Limitation of activities due to disability; R26.81 Unsteadiness on feet; M62.81 Muscle weakness (generalized); R20.2 Paresthesia of skin; R20.0 Anesthesia of skin; Z85.46 Personal history of malignant neoplasm of prostate | CPT/HCPCS: 97110; 97112; 97161; 97530 ==

== ENCOUNTER 2024-04-23 13:44 | Emergency (ER) | payer MEDICARE, BC, SELFPAY ==
[2024-04-23 13:49] VITALS: BP 157/81
[2024-04-23 14:05] VITALS: BP 175/75
--- NOTE | 2024-04-23 14:52 | ED.GENMED ---
History of Present Illness
General
Chief Complaint: Blood Pressure Problem
Source: patient
Time Seen by Provider: 04/23/24 14:41
History of Present Illness
History of Present Illness:
68-year-old male presents to the emergency room complaining of headache located primarily in the left side of his head which has been present for the past 2 days. He is also noted his blood pressure to be much higher than it normally is. He denies
any associated nausea, vomiting, diarrhea. He does feel pressure behind his eye and it is teeth on the left. No fever.
Past History
Past History
ED Past Medical History: HTN, Hypercholesterolemia and NIDDM
ED Past Surgical History: Bowel resection and Urological
Social History
Tobacco: Non-smoker
Alcohol: Occasional
Drug: None
Personal:
Living: with family
Employment: Retired
Phy Exam
Physical Exam
Physical Exam:
General: Awake, Alert, Oriented X3. No acute distress.
Vitals: unremarkable
Head: Atraumatic
Eyes: Pupils equal, EOMI
Throat: Airway intact, no exudates
Neck: Trachea midline
Lungs: Clear and equal b/l
Heart: Regular rate, no murmurs
Abd: Soft, ventral hernia, nontender, No pulsatile mass
Neuro: Nonfocal
Skin: Warm, dry, no rash
Extremities: pulses equal b/l, no edema
Course
Orders/Labs/Results
Orders:
Orders
04/23/24 13:53
EKG [Electrocardiogram (*1)] Urgent
Reason for Study: Other
Other Reason for Exam: teeth pain
EKG- Treatment ONCE
04/23/24 14:51
CT Head W/o Iv Contrast Urgent
Comment:
Reason For Exam: headache
Ketorolac [Toradol] 15 mg IV NOW STA
04/23/24 15:13
Basic Metabolic Panel Urgent
COVID-19 Antigen Urgent
Source: Nasal Swab
Complete Blood Count/With Diff Urgent
Influenza A+B Rapid Molecular Urgent
WEI Source: Nasal Swab
Specimen Description:
Abnormal Lab Results
04/23/24
15:13
RBC 4.42 L 10^6/uL
(4.70-6.10)
Hgb 12.9 L g/dL
(13.0-18.0)
Hct 37.7 L %
(39.0-52.0)
Abs Immat Gran (auto) 0.1 H 10^3/uL
(0-0.05)
Absolute Lymphs (auto) 0.9 L 10^3/uL
(1.2-3.4)
Immature Gran % 1.9 H %
(0-0.5)
Lymphocytes % 12.7 L %
(20.5-51.1)
BUN 26 H mg/dl
(9-20)
Glucose 308 H mg/dl
(70-99)
04/23/24 15:13
04/23/24 15:13
Vital Signs
Initial and Last Documented VS:
Initial Vital Signs
Temp Pulse Resp BP Pulse Ox
97.4 F 63 20 157/81 99
04/23/24 13:49 04/23/24 13:49 04/23/24 13:49 04/23/24 13:49 04/23/24 13:49
Last Documented Vital Signs
Temp Pulse Resp BP Pulse Ox
97.4 F 64 16 151/87 97
04/23/24 13:49 04/23/24 16:54 04/23/24 16:54 04/23/24 16:54 04/23/24 16:54
MDM/Problems Addressed
Differential Diagnosis Includes:
Sinusitis, cephalgia, bleed
MDM/Problems Addressed:
CT shows no acute abnormalities of the brain but there is ethmoid sinusitis. Patient treated with antibiotics. Stable for discharge home.
*Radiology
Radiology exam reviewed: radiology read reviewed
*Pulse Oximetry
Patient hypoxic: no
*EKG
Interpretation: normal
Heart Rate: 62
Rate: normal
Rhythm: sinus
Haskell: normal axis
Interval: normal interval
QRS Pattern: normal QRS
Ischemia: no ischemia
*Critical Care Note
Total Time (30-74mins, 75-104mins- exclusive of procedures): Not Applicable
ED Attending Note
-
Portions of this chart may have been created with voice recognition software.� Occasional wrong word or��sound alike� substitutions may have occurred due to the inherent limitations of voice recognition software.
Discharge Plan
Departure
Patient Disposition: Home (Routine Discharge)
Date of Disposition: 04/23/24
Time of Disposition: 16:37
Patient with high blood pressure during this ER visit?: Yes
Condition: Good
Discharge Problem:
Sinusitis, acute ethmoidal
Instructions: Sinusitis in adults, BLOOD PRESSURE
Prescriptions:
New
amoxicillin-pot clavulanate 875-125 mg tablet
1 tab PO BID Qty: 20 0RF
No Action
lisinopril 20 MG tablet
20 mg PO DAILY
fenofibrate nanocrystallized 145 MG tablet
145 mg PO HS
metformin 500 mg tablet extended release 24 hr
500 mg PO TID
escitalopram oxalate 10 mg tablet
10 mg PO HS
cholecalciferol (vitamin D3) [Vitamin D3] 50 mcg (2,000 unit) Tablet
50 mcg PO DAILY
omeprazole magnesium [Prilosec OTC] 20 mg Tablet,Delayed Release (Dr/Ec)
20 mg PO DAILYPRN PRN (Reason: acid reflux/heartburn)
gabapentin 100 mg capsule
200 mg PO HS
dapagliflozin propanediol [Farxiga] 5 mg tablet
5 mg PO DAILY
cephalexin 500 mg capsule
500 mg PO Q6H Qty: 40 0RF
Referrals:
Killian Powell DO [Family Provider] -
Interventions
Interventions:
*Risk Screen - Suicide Last Done: 04/23/24 13:49
*General Assessment Last Done: 04/23/24 14:07
*Neglect/Abuse Screening Last Done: 04/23/24 14:07
ED- Fall Risk Assessment Last Done: 04/23/24 17:00
*ED COVID-19 Vaccine History Last Done: 04/23/24 14:07
*Nursing Disposition Last Done: 04/23/24 17:00
ED- Cardiac Assessment Last Done: 04/23/24 14:07
ED- Neurological Assessment Last Done: 04/23/24 14:07
ED- Pulmonary Assessment Last Done: 04/23/24 14:07
Discharge Date and Time
Discharge Date/Time: 04/23/24 17:02
Print Language: [place]
[2024-04-23 15:00] VITALS: BP 153/92
[2024-04-23] MEDS: TORADOL 15 MG IV (15:07)
[2024-04-23 15:30] LABS: % Basophils 0.6 % (0-2); % Eosinophils 2.4 % (0-6); % Immature Granulocytes 1.9 % (0-0.5); % Lymphocytes 12.7 % (20.5-51.1); % Monocytes 7.7 % (1.7-9.3); % Neutrophils 74.7 % (42.2-75.2); Absolute Eosinophils 0.2 10^3/uL (0-0.7); Absolute Immature Granulocytes 0.1 10^3/uL (0-0.05); Absolute Lymphocytes 0.9 10^3/uL (1.2-3.4); Absolute Monocytes 0.5 10^3/uL (0.1-0.6); Absolute Neutrophils 5.1 10^3/uL (1.4-6.5); Hematocrit 37.7 % (39.0-52.0); Hemoglobin 12.9 g/dL (13.0-18.0); Mean Corp Hgb Conc. 34.2 g/dL (33.0-37.0); Mean Corpuscular Hgb 29.2 pg (27.0-31.0); Mean Corpuscular Volume 85.3 fL (80.0-94.0); Nucleated Red Blood Cells % 0 % (-); Platelet Count 199 10^3/uL (130-400); Red Blood Cell Count 4.42 10^6/uL (4.70-6.10); Red Cell Dist. Width 13.5 % (11.5-14.5); White Blood Cell Count 6.8 10^3/uL (4.8-10.8)
[2024-04-23 15:40] LABS: Blood Urea Nitrogen 26 mg/dl (9-20); Calcium 9.7 mg/dl (8.4-10.2); Carbon Dioxide 24 mmol/L (22-30); Chloride 101 mmol/L (98-107); Glucose 308 mg/dl (70-99); Potassium 4.8 mmol/L (3.5-5.1); Sodium 137 mmol/L (135-145); eGFR > 60.00
[2024-04-23 15:41] LABS: COVID-19 Antigen Negative (Negative)
[2024-04-23 16:00] VITALS: BP 130/84
[2024-04-23 16:54] VITALS: BP 151/87
== END 2024-04-23 17:02 | disposition home or self-care (01) ==
LOC: EMR 13:44
PROVIDERS: EMERGENCY PHYSICIAN Emergency Medicine; FAMILY PHYSICIAN Internal Medicine
DX: J01.20 Acute ethmoidal sinusitis, unspecified (principal); Z11.52 Encounter for screening for COVID-19; I10 Essential (primary) hypertension; E78.00 Pure hypercholesterolemia, unspecified; E11.9 Type 2 diabetes mellitus without complications; K43.9 Ventral hernia without obstruction or gangrene; Z98.0 Intestinal bypass and anastomosis status
CPT/HCPCS: 99284; 96374; 70450; 80048; 85025; 87502; 87811; 93005

== ENCOUNTER 2024-05-01 14:00 | Outpatient (RCR) | payer MEDICARE, BC, SELFPAY | END 2024-05-01 23:59 | disposition home or self-care (01) | LOC: RPT 14:00 | PROVIDERS: ATTENDING PHYSICIAN Nurse Practitioner Family; FAMILY PHYSICIAN Internal Medicine | DX: R32 Unspecified urinary incontinence (principal); Z73.6 Limitation of activities due to disability; R26.81 Unsteadiness on feet; M62.81 Muscle weakness (generalized); R20.2 Paresthesia of skin; R20.0 Anesthesia of skin; Z85.46 Personal history of malignant neoplasm of prostate; Z90.79 Acquired absence of other genital organ(s) | CPT/HCPCS: 97110; 97112 ==

== ENCOUNTER → 2024-05-17 07:20 | Outpatient (REF) | payer MEDICARE, BC, SELFPAY | LOC: RAD 07:20 | PROVIDERS: ATTENDING PHYSICIAN Surgery; FAMILY PHYSICIAN Nurse Practitioner Family | DX: L02.211 Cutaneous abscess of abdominal wall (principal) | CPT/HCPCS: 74178; Q9967 ==

== ENCOUNTER 2024-06-02 14:09 | Outpatient (RCR) | payer MEDICARE, BC, SELFPAY | END 2024-06-02 23:59 | disposition home or self-care (01) | LOC: RPT 14:09 | PROVIDERS: ATTENDING PHYSICIAN Nurse Practitioner Family; FAMILY PHYSICIAN Internal Medicine | DX: R32 Unspecified urinary incontinence (principal); Z73.6 Limitation of activities due to disability; R26.81 Unsteadiness on feet; M62.81 Muscle weakness (generalized); R20.0 Anesthesia of skin; R20.2 Paresthesia of skin; Z85.46 Personal history of malignant neoplasm of prostate; Z90.79 Acquired absence of other genital organ(s) | CPT/HCPCS: 97110; 97112 ==

== ENCOUNTER 2024-06-12 14:01 | Outpatient (RCR) | payer MEDICARE, BC, SELFPAY | END 2024-06-12 23:59 | disposition home or self-care (01) | LOC: RPT 14:01 | PROVIDERS: ATTENDING PHYSICIAN Nurse Practitioner Family; FAMILY PHYSICIAN Internal Medicine | DX: R32 Unspecified urinary incontinence (principal); Z73.6 Limitation of activities due to disability; R26.81 Unsteadiness on feet; M62.81 Muscle weakness (generalized); R20.0 Anesthesia of skin; R20.2 Paresthesia of skin; Z85.46 Personal history of malignant neoplasm of prostate; Z90.79 Acquired absence of other genital organ(s) | CPT/HCPCS: 97110; 97112 ==

== ENCOUNTER → 2024-09-19 12:58 | Outpatient (REF) | payer MEDICARE, BC, SELFPAY | LOC: RCS 12:58 | PROVIDERS: ATTENDING PHYSICIAN Nurse Practitioner Family | DX: Z01.818 Encounter for other preprocedural examination (principal); E11.65 Type 2 diabetes mellitus with hyperglycemia; Z85.46 Personal history of malignant neoplasm of prostate; N18.32 Chronic kidney disease, stage 3b; E11.42 Type 2 diabetes mellitus with diabetic polyneuropathy; T81.30XS Disruption of wound, unspecified, sequela; I51.89 Other ill-defined heart diseases; E78.2 Mixed hyperlipidemia; I10 Essential (primary) hypertension | CPT/HCPCS: 93005 ==

== ENCOUNTER → 2024-11-18 10:27 | Outpatient (REF) | payer MEDICARE, BC, SELFPAY ==
[2024-11-18 11:10] LABS: Urine Character Cloudy (Clear)
[2024-11-18 12:25] LABS: Hematocrit 34.3 % (39.0-52.0); Hemoglobin 10.8 g/dL (13.0-18.0); Mean Corp Hgb Conc. 31.5 g/dL (33.0-37.0); Mean Corpuscular Volume 87.9 fL (80.0-94.0); Nucleated Red Blood Cells % 0 % (-); Platelet Count 346 10^3/uL (130-400); Red Cell Dist. Width 13.2 % (11.5-14.5)
[2024-11-18 13:11] LABS: ALT (SGPT) 11 U/L (0-50); AST (SGOT) 17 U/L (17-59); Albumin 4.6 g/dl (3.5-5.0); Alkaline Phosphatase 71 U/L (38-126); Blood Urea Nitrogen 38 mg/dl (9-20); Calcium 10.5 mg/dl (8.4-10.2); Carbon Dioxide 20 mmol/L (22-30); Chloride 104 mmol/L (98-107); Glucose 129 mg/dl (70-99); Potassium 5.9 mmol/L (3.5-5.1); Sodium 138 mmol/L (135-145); Total Protein 7.8 g/dl (6.3-8.2); eGFR 46.35
[2024-11-18 14:00] LABS: Vitamin B12 525 pg/ml (239-931)
== END ==
LOC: REG 10:27
PROVIDERS: ATTENDING PHYSICIAN Nurse Practitioner Family; FAMILY PHYSICIAN Internal Medicine
DX: R53.1 Weakness (principal); D51.9 Vitamin B12 deficiency anemia, unspecified
CPT/HCPCS: 36415; 71046; 80053; 81003; 82607; 83880; 85025; 93005

== ENCOUNTER → 2024-11-20 12:25 | Outpatient (REF) | payer MEDICARE, BC, SELFPAY ==
[2024-11-20 13:56] LABS: Blood Urea Nitrogen 37 mg/dl (9-20); Calcium 10.1 mg/dl (8.4-10.2); Carbon Dioxide 24 mmol/L (22-30); Chloride 103 mmol/L (98-107); Glucose 143 mg/dl (70-99); Potassium 5.7 mmol/L (3.5-5.1); Sodium 137 mmol/L (135-145); eGFR 54.41
== END ==
LOC: RCS 12:25
PROVIDERS: ATTENDING PHYSICIAN Nurse Practitioner Family
DX: E87.5 Hyperkalemia (principal)
CPT/HCPCS: 36415; 80048; 93005

== ENCOUNTER → 2024-11-23 14:13 | Outpatient (REF) | payer MEDICARE, BC, SELFPAY ==
[2024-11-23 15:11] LABS: Hematocrit 31.8 % (39.0-52.0); Hemoglobin 10.6 g/dL (13.0-18.0); Mean Corp Hgb Conc. 33.3 g/dL (33.0-37.0); Mean Corpuscular Volume 85.9 fL (80.0-94.0); Nucleated Red Blood Cells % 0 % (-); Platelet Count 302 10^3/uL (130-400); Red Cell Dist. Width 13.1 % (11.5-14.5)
[2024-11-23 15:34] LABS: Blood Urea Nitrogen 35 mg/dl (9-20); Calcium 10.2 mg/dl (8.4-10.2); Carbon Dioxide 24 mmol/L (22-30); Chloride 104 mmol/L (98-107); Glucose 140 mg/dl (70-99); Potassium 5.0 mmol/L (3.5-5.1); Sodium 137 mmol/L (135-145); eGFR > 60.00
== END ==
LOC: REG 14:13
PROVIDERS: ATTENDING PHYSICIAN Nurse Practitioner Family; FAMILY PHYSICIAN Internal Medicine
DX: E87.5 Hyperkalemia (principal); T14.8XXA Other injury of unspecified body region, initial encounter
CPT/HCPCS: 36415; 80048; 85025

== ENCOUNTER 2025-01-31 07:01 | Outpatient (RCR) | payer MEDICARE, BC, SELFPAY | END 2025-01-31 23:59 | disposition home or self-care (01) | LOC: RPT 07:01 | PROVIDERS: ATTENDING PHYSICIAN Plastic Surgery; FAMILY PHYSICIAN Internal Medicine | DX: R26.89 Other abnormalities of gait and mobility (principal); Z73.6 Limitation of activities due to disability; M62.81 Muscle weakness (generalized) | CPT/HCPCS: 97110; 97162 ==

== ENCOUNTER 2025-02-28 06:27 | Outpatient (RCR) | payer MEDICARE, BC, SELFPAY | END 2025-02-28 23:59 | disposition home or self-care (01) | LOC: RPT 06:27 | PROVIDERS: ATTENDING PHYSICIAN Plastic Surgery; FAMILY PHYSICIAN Internal Medicine | DX: R26.89 Other abnormalities of gait and mobility (principal); Z73.6 Limitation of activities due to disability; M62.81 Muscle weakness (generalized) | CPT/HCPCS: 97010; 97110; 97112; 97530 ==

== ENCOUNTER 2025-03-26 07:14 | Outpatient (RCR) | payer MEDICARE, BC, SELFPAY | END 2025-03-28 23:59 | disposition home or self-care (01) | LOC: RPT 07:14 | PROVIDERS: ATTENDING PHYSICIAN Plastic Surgery; FAMILY PHYSICIAN Internal Medicine | DX: R26.89 Other abnormalities of gait and mobility (principal); Z73.6 Limitation of activities due to disability; M62.81 Muscle weakness (generalized) | CPT/HCPCS: 97110; 97112 ==